=== PATIENT | male | born 1955 | race Caucasian/White ===

== ENCOUNTER 2025-01-03 10:13 | Emergency (ER) | payer MEDICARE, MEDICAID, SELFPAY ==
[2025-01-03 10:43] VITALS: BMI 32.9
--- NOTE | 2025-01-03 10:47 | PC.NURSE ---
patient is from [facility], he is comvative refusing to let the staff do his vitals, he refusing to put on a gown, he is confused per emt report, he fell at the rehab 2 days go
--- NOTE | 2025-01-03 10:50 | EDNOTE_ITS ---
Altered Mental Status RME/HPI General Chief Complaint: Altered Mental Status Stated Complaint: AMS Time Seen by Provider: 01/03/25 10:44 Arrival date/time: 01/03/25 10:13 RME / HPI RME / HPI narrative: 69 year old male presents to the ED [facility]OD[facility] from [facility] for evaluation of altered mental status today. Per medics, NM reported at baseline patient is GCS of 15, conversive, ambulatory, and independent in ADL's. However, staff noted today patient is bed bound, incontinent, combative, and not answering questions. NH staff additionally reported patient had an unwitnessed fall on 01/01/2025, no obvious injuries were reported. While in the ED patient is combative, punching, and calling me a mother fucker . No further history obtainable from the patient. Related Data Allergies Allergy/AdvReac Type Severity Reaction Status Date / Time No Known Allergies Allergy Verified 01/03/25 10:45 Review of Systems Review of Systems ROS Unobtainable: unobtainable due to mental status Past Medical History Social History SMOKING STATUS: Never smoker ED Exam Narrative Physical exam: GENERAL APPEARANCE: Well hydrated, well nourished, in no acute distress. Patient is resisting exam, would not allow to take a listen to his heart or lungs. Patient is kicking, punching, and calling me mother fucker . HEENT: Normocephalic, atramatic, EOMI. NECK: Supple CARDIOVASCULAR: Patient would not allow me to listen to his heart LUNGS/CHEST: Patient would not allow to listen to his lungs ABDOMEN: Soft, non distended EXTREMITIES: Moving all extremities, no obvious injuries or deformities SKIN: Warm and dry MUSCULOSKELETAL: No gross deformity, full ROM all extremities NEURO: Patient is awake. Patient is resisting exam and combative, unable to assess neuro exam. PSYCHIATRIC: Patient is combative, kicking, punching at staff Course Quality Measures none Orders Category Date Time Status EKG (ED ONLY) *Do not use* NOW Care 01/03/25 11:03 Completed Petit [Urinary Catheter] QS Care 01/03/25 15:[address] cervical spine wo con Stat Exams 01/03/25 11:[address] chest abdomen pelvis wo Stat Exams 01/03/25 11:[address] head/brain wo con Stat Exams 01/03/25 11:[address] lumbar spine wo con Stat Exams 01/03/25 11:[address] thoracic spine wo con Stat Exams 01/03/25 11:03 Completed EKG (ED Only) Stat Exams 01/03/25 11:03 Draft CBC Stat Lab 01/03/25 14:15 Completed CMP [Comprehensive Metabolic Panel] Stat Lab 01/03/25 15:35 Completed Troponin I Stat Lab 01/03/25 15:35 Completed Urinalysis Stat Lab 01/03/25 17:00 Completed Urine Culture Stat Lab 01/03/25 17:00 Received DiphenhydrAMINE INJ [Benadryl Inj] Med 01/03/25 11:03 Discontinued 50 mg IM X1 ONE Haloperidol Lactate [Haldol Inj] Med 01/03/25 11:03 Discontinued 5 mg IM X1 ONE LORazepam [Ativan Inj] Med 01/03/25 11:03 Discontinued 2 mg IM X1 ONE LORazepam [Ativan Inj] Med 01/03/25 12:50 Discontinued 2 mg IM X1 ONE Sodium Chloride 0.9% 1000 ml [Ns] 1,000 ml Med 01/03/25 11:03 Active IV 125 mls/hr fentaNYL INJ [Sublimaze Inj] Med 01/03/25 16:20 Discontinued 50 mcg IVP X1 ONE Vital Signs Vital signs: Vital Signs Temperature 98.3 F 01/03/25 11:43 Pulse Rate 85 01/03/25 11:43 Respiratory Rate 18 01/03/25 11:43 Blood Pressure 139/76 H 01/03/25 11:43 Pulse Oximetry (%) 97 01/03/25 11:43 Oxygen Delivery Method Room Air 01/03/25 11:43 Altered Mental Status MDM Narrative MDM Narrative:: I, Guerda Kimbrough, am scribing for and in the presence of Dr. De Guzman. CBC unremarkable. CMP unremarkable may be except for mild dehydration for which he received some IV fluid bolus. UA showing some sugar and some ketones. Once again consistent with dehydration. Troponin negative. CT head, CT neck, CT thoracic spine, CT lumbar spine and CT chest abdomen and pelvic showing nothing acute. I look at the CT abdomen and pelvic myself I saw bladder distended with urine. Petit was inserted by nursing staff and we got approximately 760 mL of urine so far. Patient will be discharged home with a Petit leg bag for urinary retention. Patient data External records reviewed:: [facility] previous records, EMS form and Prison records (I reviewed txfer ppw from [facility] ) Clinical information provided by:: EMS Social determinants that could affect healthcare access:: housing (NH resident ) Patient has the following chronic illnesses:: Diabetes, hypertension, hyperlipidemia How is presenting disease/condition affected by chronic disease/condition?: exacerbated by Evaluation data The following diagnostics were reviewed and interpreted by me:: lab results, radiology exam(s) and EKG tracing(s) Lab and/or radiology exams considered but not ordered:: None Interpretation Summary: Ordering Physician: Moustapha De Guzman MD Date of Service: 01/03/25 Procedure(s): CT cervical spine wo con Accession Number(s): [id number] cc: Myron Ramirez MD; Moustapha De Guzman MD~ Examination: CT cervical spine without contrast 2-D sagittal reconstructions 2-D coronal reconstructions 3-D reconstructions. Exam date and time:January 03, 2025 1329 hours INDICATIONS: Patient fell a few days ago with injury to the neck, neck pain CTDI:vol (mGy) 7.78 DLP: (mGycm) 173 Technique: Multiple 2 mm axial sections of the cervical spine have been obtained. The coronal and sagittal reconstructions have been obtained. 3-D reconstructions have been obtained. Low dose protocols were performed. One or more of the following dose reduction techniques were used; automated exposure control, adjustment of the mA and/or KV according to patient size, use of iterative reconstruction technique. Findings: Axial sections demonstrate intact base of the skull. C1 exhibit satisfactory relationship to the odontoid. No acute cervical vertebral body fracture seen. Alignment posterior spinous processes satisfactory. Impression: No acute cervical fracture. Dictated By: Myron Ramirez MD Signed By: <Electronically signed by Myron Ramirez MD in OV> 01/03/25 4473 Ordering Physician: Moustapha De Guzman MD Date of Service: 01/03/25 Procedure(s): CT chest abdomen pelvis wo Accession Number(s): [id number] cc: Myron Ramirez MD; Moustapha De Guzman MD~ Examination: CT chest, without intravenous contrast. CT abdomen, without intravenous contrast. CT pelvis, without intravenous contrast. 2-D sagittal and coronal reconstructions. 3-D reconstructions. Date and time of exam:January 03, 2025 at 1334 hours INDICATIONS: Patient fell a few days ago with injury to the chest and abdomen, chest pain abdomen pain CTDI vol (mgy) 14.2 DLP (MGycm)1127 Technique: Multiple CT images, 3.0 mm slice thickness, obtained chest, abdomen, pelvis, with the high-resolution 64 slice scanner.. Sagittal and coronal 2-D reconstructions are obtained. 3-D reconstructions Low dose protocols were performed. One or more of the following dose reduction techniques were used; automated exposure control, adjustment of the mA and/or KV according to patient size, use of iterative reconstruction technique. Findings: Thoracic aorta pulmonary arteries appear intact Heavy calcification left anterior descending coronary artery No hemopericardium Patient motion degrades scan image quality There is mild irregularity of the upper margin of the sternum sagittal image 140 No acute thoracic vertebral body compression areas chronic compression L3, L2 and T2 Mild vascular congestion No pneumothorax Rib detail is poor secondary to patient motion No visualized liver splenic or renal laceration Fat-containing right adrenal mass 4.7 cm Cholelithiasis Abdominal aorta intact No free blood in the abdomen Negative for pneumoperitoneum 6 mm fat-containing umbilical hernia Urinary bladder is distended, intact Fat-containing inguinal hernias Chronic compression L3, L2 Old deformities of the anterior pelvic rami IMPRESSION: Study is limited secondary to patient motion There is irregularity of the upper body of the sternum which may relate to patient motion, clinical correlation advised No hemopericardium, pneumothorax, pulmonary contusion or hemothorax No abdominal parenchymal laceration Abdominal aorta intact No free blood in the abdomen or pelvis Dictated By: Myron Ramirez MD Signed By: <Electronically signed by Myron Ramirez MD in OV> 01/03/25 1423 Ordering Physician: Muostapha De Guzman MD Date of Service: 01/03/25 Procedure(s): CT head/brain wo con Accession Number(s): [id number] cc: Myron Ramirez MD; Moustapha De Guzman MD~ Examination: CT brain head without contrast. 2-D sagittal coronal reconstructions Date and time of exam:January 03, 2025 1329 hours Comparison November 23, 2023 INDICATIONS: Altered mental status beginning several days ago CTDI: vol (mGy):55.7 DLP: (mGycm):1135 Technique: Multiple CT axial sections of the brain have been obtained, 5 mm slice thickness. Contrast has not been administered. 2-D sagittal, coronal reconstructions have been obtained Low dose protocols were performed. One or more of the following dose reduction techniques were used; automated exposure control, adjustment of the mA and/or KV according to patient size, use of iterative reconstruction technique. Findings: Mild to moderate stable ventricular enlargement ventricular enlargement. Intra-axial or extra-axial hemorrhage density is not seen. No mass effect or midline shift Basal cisterns are not remarkable. Fourth ventricle is midline. Cranial vault intact. Impression: Negative for acute hemorrhage, mass effect or midline shift Dictated By: Myron Ramirez MD Signed By: <Electronically signed by Myron Ramirez MD in OV> 01/03/25 1351 Ordering Physician: Moustapha De Guzman MD Date of Service: 01/03/25 Procedure(s): CT lumbar spine wo con Accession Number(s): [id number] cc: Myron Ramirez MD; Moustapha De Guzman MD~ Examination: CT lumbar spine, without contrast. 2-D sagittal reconstructions. 2-D coronal reconstructions. 3-D reconstructions. Date and time of exam:January 03, 2025 1334 hours INDICATIONS: Patient fell a few days ago with injury to the lower back, lower back pain CTDI: vol (mGy):28.4 DLP: (mGycm):914 Technique: Multiple 1.25 mm axial sections of the lumbar spine without intravenous contrast have been obtained. 2-D sagittal and coronal reconstructions have been obtained. 3-D reconstructions have been obtained. Low dose protocols were performed. One or more of the following dose reduction techniques were used; automated exposure control, adjustment of the mA and/or KV according to patient size, use of iterative reconstruction technique. Findings: Severe osteopenia Chronic appearing depression superior endplate L2, L3 There is a large cortical defect in the superior endplate L3, sagittal image 60, which does appear chronic but clinical correlation advised No spondylolisthesis No focal thoracic disc protrusions IMPRESSION: Chronic appearing compressions L2, L3 If low back pain persists, suggest MRI lumbar spine without contrast follow-up Dictated By: Myron Ramirez MD Signed By: <Electronically signed by Myron Ramirez MD in OV> 01/03/25 1429 \Ordering Physician: Moustapha De Guzman MD Date of Service: 01/03/25 Procedure(s): CT thoracic spine wo [facility] Accession Number(s): [id number] cc: Myron Ramirez MD; Moustapha De Guzman MD~ Examination: CT thoracic spine, without contrast. 2-D sagittal reconstructions. 2-D coronal reconstructions. 3-D reconstructions. Date and time of exam:January 03, 2025 at 1334 hours INDICATIONS: Patient fell a few days ago with injury to the mid back, mid back pain CTDI: vol (mGy):25.8 DLP: (mGycm):949 Technique: Multiple 1.25 mm axial sections of the thoracic spine without intravenous contrast have been obtained. 2-D sagittal and coronal reconstructions have been obtained. 3-D reconstructions have been obtained. Low dose protocols were performed. One or more of the following dose reduction techniques were used; automated exposure control, adjustment of the mA and/or KV according to patient size, use of iterative reconstruction technique. Findings: The entire study is degraded by continual patient motion Severe osteopenia Chronic appearing compressions T2 and T4 No acute thoracic fracture No focal thoracic disc protrusion IMPRESSION: No acute thoracic fracture Dictated By: Myron Ramirez MD Signed By: <Electronically signed by Myron Ramirez MD in OV> 01/03/25 1444 Medications / Prescriptions Medications or Prescriptions considered but not ordered:: None Medication administrations:: Medication Administration History Sodium Chloride (Ns) 1,000 mls @ 125 mls/hr IV .Q8H ONE Stop: 01/03/25 19:02 Last Admin: 01/03/25 14:56 Dose: 125 mls/hr Documented By: REYNA Discontinued Medications Diphenhydramine HCl (Diphenhydramine Inj 50 Mg/Ml Vial) 50 mg IM X1 ONE Stop: 01/03/25 11:04 Last Admin: 01/03/25 11:32 Dose: 50 mg Documented By: Fentanyl Citrate (Fentanyl Cit Inj 50 Mcg/Ml Amp 2ml) 50 mcg IVP X1 ONE Stop: 01/03/25 16:21 Last Admin: 01/03/25 16:25 Dose: 50 mcg Documented By: REYNA Haloperidol Lactate (Haloperidol Lact Inj 5 Mg/Ml Vial) 5 mg IM X1 ONE Stop: 01/03/25 11:04 Last Admin: 01/03/25 11:32 Dose: 5 mg Documented By: Lorazepam (Lorazepam 2 Mg/Ml Vial) 2 mg IM X1 ONE Stop: 01/03/25 11:04 Last Admin: 01/03/25 11:32 Dose: 2 mg Documented By: Lorazepam (Lorazepam 2 Mg/Ml Vial) 2 mg IM X1 ONE Stop: 01/03/25 12:51 Last Admin: 01/03/25 12:55 Dose: 2 mg Documented By: REYNA See above Consultations Consultation(s) initiated? (list below): No Diagnosis Most likely diagnosis given after review of the tests above:: Dementia Cholelithiasis Acute urinary retention Admission Indicated Admission indicated?: not indicated Admission Request Was there a request for admission?: No Disposition Plan Disposition Plan: Discharge Discharge Attestation Discharge Attestation: The patient and all family members were given an opportunity to ask questions and understood the discharge instructions. Discharge instructions specifically effects, indications for sooner follow up or return to the emergency department, and the expected course of current diagnosis. Patient condition: Stable Discharge Plan Plan Patient Disposition: Xfer Skilled Nsg Fac (SNF) Disposition Comment: Stable for DC Prescriptions/Referrals Referrals: No Primary/Family,Physician [Primary Care Provider] - In 1 week Problem List Clinical Impression: Dementia, Cholelithiasis, Acute urinary retention Patient/Caregiver Discharge Instructions Education Materials: What Are Gallstones, Understanding Dementia, ED Urinary Retention, Male Additional Instructions: Bladder was distended. Petit was inserted and we got approximately 760 mL of urine. Continue the Petit and leg bag. Empty leg bag when full. Petit should be removed in 3 days. Follow-up with his medical doctor in 3 days. Return to nearest emergency department if any problem. I am enclosing a copy of the CT report that we done here in the emergency department. Please make it available to the doctor at the [facility]. Print Language: Mongolian Stand Alone Forms: [facility] Award Info., Patient Portal Info Letter
--- NOTE | 2025-01-03 11:03 | XR_ITS ---
Examination: CT cervical spine without contrast 2-D sagittal reconstructions 2-D coronal reconstructions 3-D reconstructions. Exam date and time:January 03, 2025 1329 hours INDICATIONS: Patient fell a few days ago with injury to the neck, neck pain CTDI:vol (mGy) 7.78 DLP: (mGycm) 173 Technique: Multiple 2 mm axial sections of the cervical spine have been obtained. The coronal and sagittal reconstructions have been obtained. 3-D reconstructions have been obtained. Low dose protocols were performed. One or more of the following dose reduction techniques were used; automated exposure control, adjustment of the mA and/or KV according to patient size, use of iterative reconstruction technique. Findings: Axial sections demonstrate intact base of the skull. C1 exhibit satisfactory relationship to the odontoid. No acute cervical vertebral body fracture seen. Alignment posterior spinous processes satisfactory. Impression: No acute cervical fracture.
--- NOTE | 2025-01-03 11:03 | EKG_ITS ---
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
--- NOTE | 2025-01-03 11:03 | XR_ITS ---
Examination: CT chest, without intravenous contrast. CT abdomen, without intravenous contrast. CT pelvis, without intravenous contrast. 2-D sagittal and coronal reconstructions. 3-D reconstructions. Date and time of exam:January 03, 2025 at 1334 hours INDICATIONS: Patient fell a few days ago with injury to the chest and abdomen, chest pain abdomen pain CTDI vol (mgy) 14.2 DLP (MGycm)1127 Technique: Multiple CT images, 3.0 mm slice thickness, obtained chest, abdomen, pelvis, with the high-resolution 64 slice scanner.. Sagittal and coronal 2-D reconstructions are obtained. 3-D reconstructions Low dose protocols were performed. One or more of the following dose reduction techniques were used; automated exposure control, adjustment of the mA and/or KV according to patient size, use of iterative reconstruction technique. Findings: Thoracic aorta pulmonary arteries appear intact Heavy calcification left anterior descending coronary artery No hemopericardium Patient motion degrades scan image quality There is mild irregularity of the upper margin of the sternum sagittal image 140 No acute thoracic vertebral body compression areas chronic compression L3, L2 and T2 Mild vascular congestion No pneumothorax Rib detail is poor secondary to patient motion No visualized liver splenic or renal laceration Fat-containing right adrenal mass 4.7 cm Cholelithiasis Abdominal aorta intact No free blood in the abdomen Negative for pneumoperitoneum 6 mm fat-containing umbilical hernia Urinary bladder is distended, intact Fat-containing inguinal hernias Chronic compression L3, L2 Old deformities of the anterior pelvic rami IMPRESSION: Study is limited secondary to patient motion There is irregularity of the upper body of the sternum which may relate to patient motion, clinical correlation advised No hemopericardium, pneumothorax, pulmonary contusion or hemothorax No abdominal parenchymal laceration Abdominal aorta intact No free blood in the abdomen or pelvis
--- NOTE | 2025-01-03 11:03 | XR_ITS ---
Examination: CT thoracic spine, without contrast. 2-D sagittal reconstructions. 2-D coronal reconstructions. 3-D reconstructions. Date and time of exam:January 03, 2025 at 1334 hours INDICATIONS: Patient fell a few days ago with injury to the mid back, mid back pain CTDI: vol (mGy):25.8 DLP: (mGycm):949 Technique: Multiple 1.25 mm axial sections of the thoracic spine without intravenous contrast have been obtained. 2-D sagittal and coronal reconstructions have been obtained. 3-D reconstructions have been obtained. Low dose protocols were performed. One or more of the following dose reduction techniques were used; automated exposure control, adjustment of the mA and/or KV according to patient size, use of iterative reconstruction technique. Findings: The entire study is degraded by continual patient motion Severe osteopenia Chronic appearing compressions T2 and T4 No acute thoracic fracture No focal thoracic disc protrusion IMPRESSION: No acute thoracic fracture
--- NOTE | 2025-01-03 11:03 | XR_ITS ---
Examination: CT lumbar spine, without contrast. 2-D sagittal reconstructions. 2-D coronal reconstructions. 3-D reconstructions. Date and time of exam:January 03, 2025 1334 hours INDICATIONS: Patient fell a few days ago with injury to the lower back, lower back pain CTDI: vol (mGy):28.4 DLP: (mGycm):914 Technique: Multiple 1.25 mm axial sections of the lumbar spine without intravenous contrast have been obtained. 2-D sagittal and coronal reconstructions have been obtained. 3-D reconstructions have been obtained. Low dose protocols were performed. One or more of the following dose reduction techniques were used; automated exposure control, adjustment of the mA and/or KV according to patient size, use of iterative reconstruction technique. Findings: Severe osteopenia Chronic appearing depression superior endplate L2, L3 There is a large cortical defect in the superior endplate L3, sagittal image 60, which does appear chronic but clinical correlation advised No spondylolisthesis No focal thoracic disc protrusions IMPRESSION: Chronic appearing compressions L2, L3 If low back pain persists, suggest MRI lumbar spine without contrast follow-up
--- NOTE | 2025-01-03 11:03 | XR_ITS ---
Examination: CT brain head without contrast. 2-D sagittal coronal reconstructions Date and time of exam:January 03, 2025 1329 hours Comparison November 23, 2023 INDICATIONS: Altered mental status beginning several days ago CTDI: vol (mGy):55.7 DLP: (mGycm):1135 Technique: Multiple CT axial sections of the brain have been obtained, 5 mm slice thickness. Contrast has not been administered. 2-D sagittal, coronal reconstructions have been obtained Low dose protocols were performed. One or more of the following dose reduction techniques were used; automated exposure control, adjustment of the mA and/or KV according to patient size, use of iterative reconstruction technique. Findings: Mild to moderate stable ventricular enlargement ventricular enlargement. Intra-axial or extra-axial hemorrhage density is not seen. No mass effect or midline shift Basal cisterns are not remarkable. Fourth ventricle is midline. Cranial vault intact. Impression: Negative for acute hemorrhage, mass effect or midline shift
[2025-01-03] MEDS: LORazepam 2 MG/ML VIAL IM ×2 (11:32→12:55)
[2025-01-03] MEDS: DiphenhydrAMINE INJ 50 MG/ML VIAL IM (11:32)
[2025-01-03] MEDS: HALOPERIDOL LACT INJ 5 MG/ML VIAL IM (11:32)
[2025-01-03 11:43] VITALS: BP 139/76; PULSE 85; RESP 18; TEMP 36.8; O2SAT 97
--- NOTE | 2025-01-03 12:50 | PC.NURSE ---
PATIENT CONTINUES TO BE COMBATIVE AND REMOVED BRIEF. 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
[2025-01-03] MEDS: SODIUM CHLORIDE 0.9% 1000 ML 1,000 ML 125 ML IV (14:56)
[2025-01-03 15:06] VITALS: BP 110/74; PULSE 98; RESP 17; TEMP 36.6; O2SAT 95
[2025-01-03 15:06] LABS: Basophils % (Auto) 0 % (0-2.5); Eosinophils # (Auto) 0.2 Thou/mm3 (0.0-0.5); Eosinophils % (Auto) 3 % (0-10); Hematocrit 40.4 % (41.0-53.0); Hemoglobin 13.8 g/dL (13.5-16.0); Immature Granulocytes % (Auto) 0 % (0-0); Immature Granulocytes Auto 0.02 Thou/mm3 (0.00-0.00); Lymphocytes # (Auto) 2.4 Thou/mm3 (1.0-4.8); Lymphocytes % (Auto) 28 % (10-50); Mean Corpuscular HGB Conc 34.2 g/dl (31.0-37.0); Mean Corpuscular Volume 91 fL (80-100); Monocytes # (Auto) 0.6 Thou/mm3 (0.0-0.8); Monocytes % (Auto) 7 % (0-12); Neutrophils # (Auto) 5.3 Thou/mm3 (1.8-7.7); Neutrophils % (Auto) 62 % (37-80); Nucleated Red Blood Cell % 0 /100 WBC (0); Platelet Count 228 Thou/mm3 (140-440); RDW Standard Deviation 41.1 fL (35.1-43.9); Red Blood Count 4.45 Miln/mm3 (4.50-5.90); White Blood Count 8.5 Thou/mm3 (3.8-10.6)
[2025-01-03 16:05] LABS: Alanine Aminotransferase 13 U/L (10-49); Albumin, Serum 3.7 gm/dL (3.4-4.8); Albumin/Globulin Ratio 1.3 (1.2-2.2); Alkaline Phosphatase 52 U/L (46-116); Anion Gap 7 (7-16); Aspartate Amino Transferase 24 U/L (0-34); BUN/Creatinine Ratio 30 Ratio (12-20); Bilirubin,Total 0.6 mg/dL (0.3-1.2); Blood Urea Nitrogen 24 mg/dL (9-23); Calcium 8.6 mg/dL (8.3-10.6); Calcium (Corrected) 8.8 mg/dL (8.5-10.1); Carbon Dioxide 27.8 mMol/L (20.0-31.0); Chloride 106 mMol/L (98-107); Creatinine (Component) 0.8 mg/dL (0.6-1.3); Estimated Creatinine Clearance 82.9 mL/min (>60); Globulin 2.9 gm/dL (2.3-3.5); Glucose 99 mg/dL (74-106); Osmolality,Calculated 285 (275-295); Potassium 3.9 mMol/L (3.4-5.1); Sodium 141 mMol/L (136-145); Total Protein 6.6 gm/dL (5.7-8.2); Troponin I < 0.002 ng/mL (0.0-0.045); eGFR > 60 See Note
[2025-01-03] MEDS: fentaNYL CIT INJ 50 mCg/ML AMP 2ML IVP (16:25)
[2025-01-03 17:13] VITALS: BP 93/62; PULSE 82; RESP 15; O2SAT 95
[2025-01-03 17:19] LABS: Collection Type, Urine Catheter; Squamous Epithelial Cell,Urine 0 /hpf (0-5)
[2025-01-03 17:27] LABS: Bilirubin,Urine Negative (Negative); Blood,Urine Negative (Negative); Clarity,Urine Clear (Clear/Hazy); Color,Urine Yellow (Lt Yel-Yel); Glucose, Urine 4+ (Negative); Hyaline Casts,Urine < 1 /hpf (0-1); Ketones,Urine 1+ (Negative); Leukocyte Esterase,Urine Negative (Negative); Nitrite,Urine Negative (Negative); Protein,Urine Trace (Neg - Trace); RBC,Urine 13 /hpf (0-3); Specific Gravity,Urine 1.028 (1.001-1.035); Urobilinogen,Urine Negative mg/dL (0.0-1.0); WBC,Urine 2 /hpf (0-5)
--- NOTE | 2025-01-03 18:24 | PD.EDADDENDU ---
Emergency Room Addendum Addendum Narrative: Twelve-lead EKG that was done at 12:36 PM and interpreted by me: Normal sinus rhythm. Heart rate is 97. Left axis deviation. No ST elevation. No ST depression. No PVC. No STEMI. Regular rate and rhythm.
[2025-01-03 19:29] VITALS: BP 108/71; PULSE 81; RESP 18; O2SAT 97
[2025-01-03 20:05] VITALS: BP 140/88; PULSE 88; RESP 18; TEMP 36.7; O2SAT 97
== END 2025-01-03 20:34 | disposition skilled nursing facility (03) ==
PROVIDERS: Emergency Provider Emergency Medicine
DX: F03.90 Unspecified dementia, unspecified severity, without behavioral disturbance, psychotic disturbance, mood disturbance, and anxiety (principal); K80.20 Calculus of gallbladder without cholecystitis without obstruction; N32.89 Other specified disorders of bladder; R94.31 Abnormal electrocardiogram [ECG] [EKG]; S19.9XXA Unspecified injury of neck, initial encounter; S29.9XXA Unspecified injury of thorax, initial encounter; S39.91XA Unspecified injury of abdomen, initial encounter; S39.92XA Unspecified injury of lower back, initial encounter; I10 Essential (primary) hypertension; W19.XXXA Unspecified fall, initial encounter; Z74.01 Bed confinement status
CPT/HCPCS: 51702; 36415; 70450; 71250; 72125; 72128; 72131; 74176; 80053; 81001; 84484; 85025; 87086; 93005; 96372; 99284; J1200; J1630; J2060; J3010; J7030

== ENCOUNTER 2025-02-06 08:39 | Emergency (ER) | payer MEDICARE, MEDICAID, SELFPAY ==
[2025-02-06 08:42] VITALS: PULSE 96; RESP 18; O2SAT 98; BMI 29.0
--- NOTE | 2025-02-06 08:57 | EKG_ITS ---
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
[2025-02-06 08:59] VITALS: BP 96/65; PULSE 99; RESP 16; TEMP 37; O2SAT 97
--- NOTE | 2025-02-06 09:56 | PC.NURSE ---
PT WAS GIVEN FOOD AND DRINK; PT WAS ABLE TO FEED HIM SELF, NOT C/O OF ANY DISCOMFORT.
--- NOTE | 2025-02-06 10:04 | PD.EDSEIZ ---
ED Seizures RME/HPI General Chief Complaint: Seizure Stated Complaint: SEIZURE Time Seen by Provider: 02/06/25 09:41 Arrival date/time: 02/06/25 08:39 RME / HPI RME / HPI Narrative: DR. GARZA MAIN ED EVALUATION: 69 year old male with past medical history significant for diabetes, hypertension, and hyperlipidemia presents to the Emergency Department [facility] with complaint of a seizure at the SNF, witnessed by his roommate. No fall or injury, patient was in bed when he had the seizure. Patient unsure why he is here but denies any symptoms. Patient is comfort measures only. Related Data Allergies Allergy/AdvReac Type Severity Reaction Status Date / Time No Known Allergies Allergy Verified 01/03/25 10:45 Review of Systems Review of Systems Systems Reviewed: All systems reviewed, normal except as documented Past Medical History Past Medical History CARDIAC: Positive Hypercholesterolemia and Hypertension; Negative Congestive Heart Failure RESPIRATORY: Negative Chronic Obstructive Pulmonary Disease (COPD) GASTROINTESTINAL: Positive Gastroesophageal Reflux Disease GENITOURINARY: Negative Renal Disease MUSCULOSKELETAL: Positive Degenerative Disk Disease ENDOCRINE: Positive Diabetes Mellitus Type 2; Negative Diabetes Mellitus Type 1 PSYCHO/SOCIAL: Positive Bipolar Disorder Social History SMOKING STATUS: Former smoker SUBSTANCE USE: does not use ALCOHOL: Never ED Exam Narrative Physical exam: GENERAL APPEARANCE: AxOx4, generally well-appearing, no acute distress. HEENT: NC, AT. MMM. EOMI, clear conjunctiva, oropharynx clear. NECK: Supple without lymphadenopathy. No stiffness or restricted ROM. HEART: Borderline tachycardic with regular rhythm, normal S1/S1, no m/r/g LUNGS: CTAB, moving air well. No crackles or wheezes are heard. ABDOMEN: Soft, nontender, nondistended with good bowel sounds heard. BACK: No midline C/T/L spine pain or deformity, No CVAT, no obvious deformity. EXTREMITIES: Without cyanosis, clubbing or edema. MUSCULOSKELETAL: FROM of all major joints, no chest tenderness NEUROLOGICAL: Grossly nonfocal. Alert and oriented, moving all 4 extremities. CN not formally tested but appear grossly intact. Observed to ambulate with normal gait. Skin: Warm and dry without any rash. Course Quality Measures none Orders Category Date Time Status EKG (ED ONLY) *Do not use* NOW Care 02/06/25 08:57 Completed EKG (ED Only) Stat Exams 02/06/25 08:57 Draft Vital Signs Vital signs: Vital Signs Temperature 98.6 F 02/06/25 08:59 Pulse Rate 99 02/06/25 08:59 Respiratory Rate 16 02/06/25 08:59 Blood Pressure 96/65 02/06/25 08:59 Pulse Oximetry (%) 97 02/06/25 08:59 Oxygen Delivery Method Room Air 02/06/25 08:59 Procedures -ED EKG Interpretation #1: Date of EK02/06/25 Time of EK:59 Rate: 106 Interpretation: Interpreted by me Additional EKG comment: sinus tachycardia, rate 106, normal intervals, normal axis, no STEMI Seizure MDM Narrative MDM Narrative:: I, Annalise Killian, am scribing for and in the presence of Dr. Garza. Patient data External records reviewed:: [facility] previous records (Reviewed last ED visit dated 01/03/25. discharged with the following: Acute urinary) and EMS form Clinical information provided by:: patient and EMS Social determinants that could affect healthcare access:: none Patient has the following chronic illnesses:: Diabetes, hypertension, and hyperlipidemia. How is presenting disease/condition affected by chronic disease/condition?: uneffected by Evaluation data The following diagnostics were reviewed and interpreted by me:: EKG tracing(s) Lab and/or radiology exams considered but not ordered:: none Interpretation Summary: See above under MDM narrative. Medications / Prescriptions Medications or Prescriptions considered but not ordered:: none Medication administrations:: see above if any Consultations Consultation(s) initiated? (list below): No Diagnosis Seizure Differential Diagnosis: generalized seizure, new onset seizure and epileptic seizure Most likely diagnosis given after review of the tests above:: Observed seizure-like activity Admission Indicated Admission indicated?: not indicated Admission Request Was there a request for admission?: No Disposition Plan Disposition Plan: Discharge Discharge Attestation Discharge Attestation: The patient and all family members were given an opportunity to ask questions and understood the discharge instructions. Discharge instructions specifically effects, indications for sooner follow up or return to the emergency department, and the expected course of current diagnosis. Patient condition: Stable Discharge Plan Plan Patient Disposition: HOME (Self Care) Problem List Clinical Impression: Observed seizure-like activity Patient/Caregiver Discharge Instructions Education Materials: ED Seizure New Onset Unknown ... Additional Instructions: Follow-up with the facility provider in 2 days for recheck. You can return to the emergency department sooner symptoms worsen or if notes any new, concerning issues. Print Language: Tanzanian Stand Alone Forms: [facility] Award Info., Patient Portal Info Letter
--- NOTE | 2025-02-06 10:15 | PC.CC ---
Sol TANG was consulted by CALVIN Gerard regarding transportation arrangement for the patient back to [facility]. ASW contacted [facility] [phone].
[2025-02-06 11:18] VITALS: BP 122/76; PULSE 99; RESP 17; O2SAT 100
== END 2025-02-06 12:47 | disposition home or self-care (01) ==
PROVIDERS: Emergency Provider Emergency Medicine
DX: R56.9 Unspecified convulsions (principal); R00.0 Tachycardia, unspecified; I10 Essential (primary) hypertension; E78.00 Pure hypercholesterolemia, unspecified; Z87.891 Personal history of nicotine dependence
CPT/HCPCS: 93005; 99283

== ENCOUNTER 2025-02-10 19:11 | Inpatient (IN) | payer MEDICARE, MEDICAID, SELFPAY ==
[2025-02-10] VITALS (8 sets, daily range): BP systolic 105–116; BP diastolic 63–84; PULSE 92–119; RESP 12–95; TEMP 36.8–37.5; O2SAT 90–97; BMI 26.6
--- NOTE | 2025-02-10 19:53 | PC.NURSE ---
Informed Dr. Ann pt meets sepsis criteria and that sepsis alert was called.
--- NOTE | 2025-02-10 19:57 | XR_ITS ---
Examination: AP chest single view Technique one AP portable semiupright chest single view Standing time: February 10, 2025 at 1917 hours INDICATIONS: Sepsis COMPARISON: November 23, 2023 FINDINGS: Diffuse mild bilateral pneumonia Normal heart size Mild vascular congestion Old deformity right clavicle IMPRESSION: Mild diffuse bilateral pneumonia
--- NOTE | 2025-02-10 19:57 | EKG_ITS ---
[facility] Test Date: 2025-02-10 Pat Name: FRANCISCO J MOHR Department: Room: - Gender: Male Configuration Manager: : 1955 Requested By: Terrence Morton Order Number: [id number] Reading MD: Terrence Morton Measurements Intervals [place] Rate: 113 P: 48 MI: 132 QRS: -39 QRSD: 102 T: 61 QT: 306 QTc: 421 Interpretive Statements SINUS TACHYCARDIA LEFT AXIS DEVIATION [QRS AXIS < -30] PATTERN CONSISTENT WITH PULMONARY DISEASE Compared to ECG 02/06/2025 08:59:48 No significant changes /store/S0/[id number]/[id number].pdf
--- NOTE | 2025-02-10 20:01 | PD.EDADULT ---
ED General RME/HPI General Chief complaint: General Adult/Misc Complain Stated complaint: WEAKNESS Time Seen by Provider: 02/10/25 19:55 Arrival date/time: 02/10/25 19:11 69 year old male with past medical history of Acute respiratory failure, weakness, mentally delayed cardiolyopathy, DM 2, GERD, HTN, HDL, Fall risk present to emergency room via EMS from [facility] with c/o of tachycardia per EMS. Pt is currently baseline. SEVERITY: Symptoms are described as being severe with limitations on activities of daily living CONTEXT: The patient is unable to identify any inciting events. DURATION/TIMING: The symptoms started approximately 1 day ASSOCIATED SYMPTOMS: The patient is unable to identify any other associated symptoms. MODIFYING FACTORS: The patient is unable to identify any alleviating or aggravating symptoms. PERTINENT ROS: patient is nonverbal DNR: Comfort care only REVIEW OF SYSTEMS: See History of Present Illness - with the exception of those mentioned in the history of present illness, all other systems reviewed and reported as negative GENERAL: In general the patient is awake, interactive, in an emergency department gurney. Non verbal HEAD/EYES/EARS/NOSE/THROAT: normo-cephalic, atraumatic, mucus membranes are moist, anicteric, palpebral conjunctiva is pink, trachea is midline. CARDIOVASCULAR: regular rate and regular rhythm, no murmurs, heart sounds are not distant, strong pulses in all four extremities that are equal and symmetric bilateral upper and lower extremities, normal capillary refill. CHEST/PULMONARY: normal chest rise and fall, scattered wheezes, + cough noted. without evidence of respiratory distress. NECK: No midline/Paraspinal tenderness, no step off ROM/Strenght intact No Kernig and bruzinski sign. No trauma ABDOMEN: soft, not tender, no masses appreciated BACK: normal range of motion without pain. NEUROLOGICAL: cranio-facial features are symmetric, moves all four extremities equally without obvious limitations or weakness. EXTREMITY: no tenderness to palpation over the long bones or large joints of the bilateral upper and lower extremities, no joint swelling, no joint erythema, no signs of trauma, no unilateral leg swelling and no peripheral edema. SKIN: warm, dry, well-perfused, no jaundice, no rash, no telangiectasias or petechia. PSYCH: calm, cooperative, no evidence of psychosis or agitation Related Data Allergies Allergy/AdvReac Type Severity Reaction Status Date / Time No Known Allergies Allergy Verified 02/10/25 19:29 Course Quality Measures Possible source: pulmonary Blood cultures ordered: yes Antibiotic ordered: Yes Pertinent labs: 02/10/25 20:07 Lactic Acid 3.1 H mMol/L (0.4-2.0) Procalcitonin 0.15 ng/ml (0.0-0.49) sepsis Orders Category Date Time Status Admit to Inpatient Status Routine Admission 02/10/25 21:52 Active Patient Condition Routine Admission 02/10/25 21:52 Ordered Activity as Tolerated Routine Care 02/10/25 21:53 Ordered Bedside Blood Glucose NOW Care 02/10/25 19:57 Active Instructor Of Education Q4H START 00 Care 02/10/25 19:57 Active Insert IV NOW Care 02/10/25 19:57 Active Notify provider NEEDED Care 02/10/25 21:52 Active Strict Intake and Output Routine Care 02/10/25 19:57 Ordered Diet Dysphagia 1- Pureed Diet 02/11/25 Breakfast Active XR chest 1V SEPSIS PROTOCOL Stat Exams 02/10/25 19:57 Completed Basic Metabolic Panel AM DRAW Lab 02/11/25 05:00 Ordered Basic Metabolic Panel AM DRAW Lab 02/12/25 05:00 Ordered Basic Metabolic Panel AM DRAW Lab 02/13/25 05:00 Ordered Blood Culture (Lab) Stat Lab 02/10/25 20:00 Received CBC AM DRAW Lab 02/11/25 05:00 Ordered CBC AM DRAW Lab 02/12/25 05:00 Ordered CBC AM DRAW Lab 02/13/25 05:00 Ordered CBC Stat Lab 02/10/25 20:07 Completed Comprehensive Metabolic Panel Stat Lab 02/10/25 20:07 Completed Lactate (Lactic Acid) Stat Lab 02/10/25 20:07 Results Lactic Acid [Lactate (Lactic Acid)] Stat Lab 02/10/25 21:50 Ordered Partial Thromboplastin Time Stat Lab 02/10/25 20:07 Completed Procalcitonin Stat Lab 02/10/25 20:07 Completed Prothrombin Time with INR Stat Lab 02/10/25 20:07 Completed Troponin I Stat Lab 02/10/25 20:07 Completed Urinalysis Stat Lab 02/10/25 21:23 Completed Urine Culture Stat Lab 02/10/25 21:23 Received Acetaminophen Tab [Tylenol Tab] Med 02/10/25 21:51 Ordered 650 mg PO Q6H PRN Enoxaparin [Lovenox] Med 02/11/25 09:00 Ordered 40 mg SC QDAY Sodium Chloride 0.9% 1000 ml [Ns] 1,000 ml Med 02/10/25 22:00 Ordered IV 60 mls/hr Sodium Chloride 0.9% 1000 ml [Ns] 1,000 ml Med 02/10/25 19:59 Discontinued IV 999 mls/hr Sodium Chloride 0.9% 1000 ml [Ns] 1,000 ml Med 02/10/25 21:33 Discontinued IV 999 mls/hr cefTRIAXone/D5w 1gm IV premix [Rocephin/D5w 1gm IV Med 02/10/25 19:59 Discontinued premix] 1 gm in 50 ml IV X1 Code Status Routine Oth 02/10/25 21:51 Ordered EKG (RT) Stat RT 02/10/25 19:57 Draft Oxygen Delivery DAILY RT 02/10/25 21:53 Active Oxygen Delivery NOW RT 02/10/25 19:57 Active Reevaluation(s) Reevaluation #1: 2008 Nurse spoke with family okay with IV antibiotics and IV fluids Reevaluation #2: 2129, nurse will call family if they want patient to be admit or go back to facility. xray: + pna 3.1 lactic, repeat pending wbc 11, cmp wnl , proca. wnl 2 bolus of IV fluids given so far, 1 gram of rocephin for sepsis protocol 2140 per nurse family is okay for patient to be admit and tx for pna. Reevaluation #3: DISPOSITION: Emergency Department nursing documentation was reviewed including triage complaint, associated symptoms, administration of medications, response to therapy and vital signs. Given the history, physical exam, and review of laboratory and imaging studies the patient is determined to be unsafe for discharge and is being moved into the hospital for further diagnostic tests, treatments, stabilization, and monitored response to therapy. I communicated the history, physical exam, pertinent laboratory and imaging studies to the inpatient physician. The inpatient physician has access to electronic copies of all emergency department laboratory testing and imaging studies as well as medications ordered and administered. Vital Signs Vital signs: Vital Signs Temperature 99.5 F 02/10/25 19:30 Pulse Rate 119 H 02/10/25 19:30 Respiratory Rate 17 02/10/25 19:30 Blood Pressure 116/76 02/10/25 19:30 Pulse Oximetry (%) 90 L 02/10/25 19:30 Oxygen Delivery Method Room Air 02/10/25 19:30 Procedures -ED EKG Interpretation #1: Date of EK02/10/25 Rate: 113 Interpretation: Reviewed by me EKG Impression: No acute ST-T changes, No ischemic changes and Sinus tachycardia MDM Patient data External records reviewed:: [facility] previous records and EMS form Clinical information provided by:: patient, EMS and family Social determinants that could affect healthcare access:: other (specify) (lives at [facility] ) Patient has the following chronic illnesses:: as stated in chart How is presenting disease/condition affected by chronic disease/condition?: exacerbated by Evaluation data The following diagnostics were reviewed and interpreted by me:: lab results, radiology exam(s) and EKG tracing(s) Lab and/or radiology exams considered but not ordered:: n/a Interpretation Summary: cxr: Diffuse mild bilateral pneumonia Normal heart size Mild vascular congestion Old deformity right clavicle IMPRESSION: Mild diffuse bilateral pneumonia wbc 11k cmp wnl lactic 3.1 ua no infection Medications Medications considered but not ordered:: n/a Medication administrations:: Medication Administration History Acetaminophen (Acetaminophen 325 Mg Tablet) 650 mg PO Q6H PRN PRN Reason: Fever >101.5 Stop: 03/12/25 21:50 Atorvastatin Calcium (Atorvastatin Calcium 20 Mg Tablet) 40 mg PO HS BRI Stop: 03/13/25 20:59 Dextrose (Dextrose 50%-Water Inj 50 Ml Syringe) 25 ml IV Q15MIN PRN PRN Reason: BG 50-70 responsive npo pt Stop: 03/12/25 21:53 Dextrose (Dextrose 50%-Water Inj 50 Ml Syringe) 50 ml IV Q15MIN PRN PRN Reason: BG <50 OR BG <70 & pt unresponsive Stop: 03/12/25 21:53 Divalproex Sodium (Divalproex Sod Dr 500 Mg Tablet.Dr) 250 mg PO TID BRI Stop: 03/12/25 21:59 Enoxaparin Sodium (Enoxaparin Sod Inj 40 Mg/0.4 Ml Syringe) 40 mg SC QDAY BRI Stop: 02/25/25 08:59 Glucagon (Glucagon Inj 1 Mg Vial) 1 mg IM Q15MIN PRN PRN Reason: BG <70, and no IV access Sodium Chloride (Ns) 1,000 mls @ 60 mls/hr IV .[id number] BRI Stop: 03/12/25 21:59 Ceftriaxone Sodium 1,000 mg/ (Sodium Chloride) 50 mls @ 100 mls/hr IV QDAY BRI Stop: 02/18/25 08:59 Azithromycin 500 mg/ Sodium (Chloride) 250 mls @ 250 mls/hr IV QDAY BRI Stop: 02/18/25 08:59 Insulin Glargine (Insulin Glargine (Lantus) 5 Unit/0.05 Ml (Per 5 Units)) 15 unit SC QDAY BRI Stop: 03/13/25 08:59 Insulin Human Lispro (Insulin Lispro (Admelog) 1 Unit/0.01 Ml Unit) 0 unit SC AC [facility]; Protocol Stop: 03/13/25 07:29 Discontinued Medications Sodium Chloride (Ns) 1,000 mls @ 999 mls/hr IV .Q1H1M ONE Stop: 02/10/25 20:59 Last Infusion: 02/10/25 21:39 Dose: Infused Documented By: Admin: 02/10/25 20:38 Dose: 999 mls/hr Documented By: BB Ceftriaxone Sodium/Dextrose (Rocephin/D5w 1gm Iv Premix) 1 gm in 50 mls @ 100 mls/hr IV X1 ONE Stop: 02/10/25 20:28 Last Infusion: 02/10/25 21:08 Dose: Infused Documented By: Admin: 02/10/25 20:38 Dose: 100 mls/hr Documented By: BB Sodium Chloride (Ns) 1,000 mls @ 999 mls/hr IV .Q1H1M ONE Stop: 02/10/25 22:33 Last Admin: 02/10/25 21:52 Dose: 999 mls/hr Documented By: KG as state above Consultations Consultation(s) initiated? (list below): Yes Consultation #1 (Physician, Specialty, Details): [phone] hospitalist for consult for admission , will accept patient for admission Diagnosis Differential Diagnosis ED Complaint MDM: pna, sepsis, uti, dehydration, electroyle imbalance, anemia Most likely diagnosis given after review of the tests above:: bilateral pna , sepsis Admission Indicated Admission indicated?: indicated Explain why admission is indicated or not indicated:: sepsis pna Admission Request Was there a request for admission?: Yes Admission Attestation Admission request attestation: Discussed case with [stewart ] from Hospitalist service regarding admission. Discussed patients ED course, exam findings, labs, and radiology results. The Hospitalist [agrees,] to accept the patient for admission. Disposition Plan Disposition Plan: Admit Medical Decision Making Differential Diagnosis Differential Diagnosis: pna, sepsis, uti, dehydration, electroyle imbalance, anemia Lab Data 02/10/25 20:07 02/10/25 20:07 Labs: Lab Results 02/10/25 02/10/25 Range/Units 20:07 21:23 WBC 11.0 H (3.8-10.6) Thou/mm3 RBC 4.22 L (4.50-5.90) Miln/mm3 Hgb 13.1 L (13.5-16.0) g/dL Hct 39.1 L (41.0-53.0) % MCV 93 (80-100) fL MCH 31.0 (25.0-35.0) pg MCHC 33.5 (31.0-37.0) g/dl RDW Std Deviation 43.4 (35.1-43.9) fL Plt Count 215 (140-440) Thou/mm3 Neut % (Auto) 72 (37-80) % Lymph % (Auto) 18 (10-50) % [place] % (Auto) 8 (0-12) % Eos % (Auto) 1 (0-10) % Baso % (Auto) 1 (0-2.5) % Neut # (Auto) 8.0 H (1.8-7.7) Thou/mm3 Lymph # (Auto) 2.0 (1.0-4.8) Thou/mm3 [place] # (Auto) 0.8 (0.0-0.8) Thou/mm3 Eos # (Auto) 0.1 (0.0-0.5) Thou/mm3 Baso # (Auto) 0.1 (0.0-0.2) Thou/mm3 Immature Gran # (Auto) 0.04 H (0.00-0.00) Thou/mm3 Absolute Nucleated RBC 0.00 (0.00-0.00) Thou/mm3 Immature Gran % 0 (0-0) % Nucleated RBC % 0 (0) /100 WBC PT 10.8 (9.0-12.2) Seconds INR 1.0 (0.9-1.3) APTT 24.7 (22.0-36.0) Seconds Sodium 139 (136-145) mMol/L Potassium 4.2 (3.4-5.1) mMol/L Chloride 104 (98-107) mMol/L Carbon Dioxide 25.9 (20.0-31.0) mMol/L Anion Gap 9 (7-16) BUN 26 H (9-23) mg/dL Creatinine 0.9 (0.6-1.3) mg/dL Estim Creat Clear Calc 71.9 (>60) mL/min eGFR > 60 (60 - ) See Note BUN/Creatinine Ratio 29 H (12-20) Ratio Glucose 248 H (74-106) mg/dL Calculated Osmolality 290 (275-295) Lactic Acid 3.1 H (0.4-2.0) mMol/L Calcium 9.0 (8.3-10.6) mg/dL Corrected Calcium 9.4 (8.5-10.1) mg/dL Total Bilirubin 0.3 (0.3-1.2) mg/dL AST 16 (0-34) U/L ALT 10 (10-49) U/L Alkaline Phosphatase 66 (46-116) U/L Troponin I < 0.002 (0.0-0.045) ng/mL Total Protein 6.4 (5.7-8.2) gm/dL Albumin 3.5 (3.4-4.8) gm/dL Globulin 2.9 (2.3-3.5) gm/dL Albumin/Globulin Ratio 1.2 (1.2-2.2) Procalcitonin 0.15 (0.0-0.49) ng/ml Ur Collection Type Catheter Urine Color Lt-Yellow (Lt Yel-Yel) Urine Clarity Clear (Clear/Hazy) Urine pH 6.0 (5.0-7.0) Ur Specific [place] 1.023 (1.001-1.035) Urine Protein Negative (Neg - Trace) Urine Glucose (UA) 3+ A (Negative) Urine Ketones 1+ A (Negative) Urine Blood Negative (Negative) Urine Nitrite Negative (Negative) Urine Bilirubin Negative (Negative) Urine Urobilinogen (Auto) Negative (0.0-1.0) mg/dL Ur Leukocyte Esterase Negative (Negative) Urine RBC 3 (0-3) /hpf Urine WBC 1 (0-5) /hpf Ur Squamous Epith Cells < 1 (0-5) /hpf Urine Bacteria None (None) Discharge Plan Problem List Clinical Impression: Sepsis due to pneumonia
[2025-02-10 20:13] LABS: Lactate (Lactic Acid) 3.1 mMol/L (0.4-2.0)
[2025-02-10 20:27] LABS: Basophils # (Auto) 0.1 Thou/mm3 (0.0-0.2); Basophils % (Auto) 1 % (0-2.5); Eosinophils # (Auto) 0.1 Thou/mm3 (0.0-0.5); Eosinophils % (Auto) 1 % (0-10); Hematocrit 39.1 % (41.0-53.0); Hemoglobin 13.1 g/dL (13.5-16.0); Immature Granulocytes % (Auto) 0 % (0-0); Immature Granulocytes Auto 0.04 Thou/mm3 (0.00-0.00); Lymphocytes % (Auto) 18 % (10-50); Mean Corpuscular HGB Conc 33.5 g/dl (31.0-37.0); Mean Corpuscular Volume 93 fL (80-100); Monocytes # (Auto) 0.8 Thou/mm3 (0.0-0.8); Monocytes % (Auto) 8 % (0-12); Neutrophils % (Auto) 72 % (37-80); Nucleated Red Blood Cell % 0 /100 WBC (0); Platelet Count 215 Thou/mm3 (140-440); RDW Standard Deviation 43.4 fL (35.1-43.9); Red Blood Count 4.22 Miln/mm3 (4.50-5.90)
[2025-02-10 20:37] LABS: Partial Thromboplastin Time 24.7 Seconds (22.0-36.0); Prothrombin Time 10.8 Seconds (9.0-12.2)
[2025-02-10] MEDS: SODIUM CHLORIDE 0.9% 1000 ML 1,000 ML 999 ML IV ×2 (20:38→21:52)
[2025-02-10] MEDS: cefTRIAXone/D5w 1gm IV premix 1 GM/50 ML BAG IV (20:38)
[2025-02-10 21:09] LABS: Alanine Aminotransferase 10 U/L (10-49); Albumin, Serum 3.5 gm/dL (3.4-4.8); Anion Gap 9 (7-16); Aspartate Amino Transferase 16 U/L (0-34); BUN/Creatinine Ratio 29 Ratio (12-20); Bilirubin,Total 0.3 mg/dL (0.3-1.2); Blood Urea Nitrogen 26 mg/dL (9-23); Carbon Dioxide 25.9 mMol/L (20.0-31.0); Chloride 104 mMol/L (98-107); Creatinine (Component) 0.9 mg/dL (0.6-1.3); Estimated Creatinine Clearance 71.9 mL/min (>60); Glucose 248 mg/dL (74-106); Osmolality,Calculated 290 (275-295); Potassium 4.2 mMol/L (3.4-5.1); Sodium 139 mMol/L (136-145); Total Protein 6.4 gm/dL (5.7-8.2); Troponin I < 0.002 ng/mL (0.0-0.045); eGFR > 60 See Note
[2025-02-10 21:10] LABS: Albumin/Globulin Ratio 1.2 (1.2-2.2); Alkaline Phosphatase 66 U/L (46-116); Calcium (Corrected) 9.4 mg/dL (8.5-10.1); Globulin 2.9 gm/dL (2.3-3.5); Procalcitonin 0.15 ng/ml (0.0-0.49)
[2025-02-10 21:38] LABS: Collection Type, Urine Catheter
--- NOTE | 2025-02-10 21:46 | PC.NURSE ---
Called and spoke with healthcare POA Luciana - [facility] to admit patient and treat with IV antibiotics. Dr. Cardenas at the bedside.
[2025-02-10 22:03] LABS: Bilirubin,Urine Negative (Negative); Blood,Urine Negative (Negative); Clarity,Urine Clear (Clear/Hazy); Color,Urine Lt-Yellow (Lt Yel-Yel); Glucose, Urine 3+ (Negative); Ketones,Urine 1+ (Negative); Leukocyte Esterase,Urine Negative (Negative); Nitrite,Urine Negative (Negative); Protein,Urine Negative (Neg - Trace); RBC,Urine 3 /hpf (0-3); Specific Gravity,Urine 1.023 (1.001-1.035); Squamous Epithelial Cell,Urine < 1 /hpf (0-5); Urobilinogen,Urine Negative mg/dL (0.0-1.0); WBC,Urine 1 /hpf (0-5)
--- NOTE | 2025-02-10 22:08 | PC.NURSE ---
Admitting resident at the bedside.
--- NOTE | 2025-02-10 22:23 | ESHP_ITS ---
Documentation for date of: 02/10/25 HPI History of Present Illness Chief complaint: Tachycardia reported by half-way facility staff History of present illness: HPI: A 69-year-old male patient with past medical history of hypertension, hyperlipidemia, diabetes mellitus, and encephalopathy, muscular disorder, bipolar disorder, questionable seizure disorder, on valproate was brought to the ED from half-way facility after he was noticed to have tachycardia. Patient at baseline is confused and oriented x 1 only to self. Was not able to take history from the patient however in review of the patient's chart patient was noticed to have heart rate of 119, respiratory rate of 17, O2 sat of 90% on room air increased to 97 on 2 L of oxygen. WBC found to be elevated 11.0, hemoglobin 13.1 CMP was only significant for blood glucose of 248, lactic acid of 3.1, Pro-Geraldo was negative and serum creatinine is 0.9, chest x-ray showed bilateral pneumonia, EKG showed sinus tachycardia. Patient received 1 dose of ceftriaxone at the ED and also was given 1 L of fluids. Home medications:Atorvastatin, valproate, insulin, metformin, ipratropium/albuterol inhaler, PMH: As above PSX: Knee replacement surgery Social hx: Unknown history of drug abuse or smoking Allergies: No known allergies Review of Systems Review of Systems Systems Reviewed: All systems reviewed, normal except as documented Exam Vital Signs Temp Pulse Resp BP Pulse Ox O2 Del Method O2 Flow Rate 99.5 F 113 H 18 113/63 97 Nasal Cannula 2 02/10/25 19:30 02/10/25 21:00 02/10/25 21:00 02/10/25 21:00 02/10/25 21:00 02/10/25 21:00 02/10/25 21:00 Narrative Exam GEN: AOx1 at baseline, able to follow command. HEENT: NC/AC,oral mucosa moist, neck supple. CVS: RRR, S1-S2 present, no murmurs appreciated. RESP: Coarse crepitations B/L. GI: Soft,non distended, non tender, NBS. MSK: Able to move all 4 limbs, no lower extremity edema. SKIN: Warm and dry. HALL DIRECTOR: CN II-XII and Sensation grossly intact. Results: Labs 02/10/25 20:07 02/10/25 20:07 Labs: Short CBC 02/10/25 Range/Units 20:07 WBC 11.0 H (3.8-10.6) Thou/mm3 Hgb 13.1 L (13.5-16.0) g/dL Hct 39.1 L (41.0-53.0) % Plt Count 215 (140-440) Thou/mm3 BMP 02/10/25 20:07 Sodium 139 Potassium 4.2 Chloride 104 Carbon Dioxide 25.9 BUN 26 H Creatinine 0.9 Glucose 248 H Calcium 9.0 Cardiac Enzymes 02/10/25 Range/Units 20:07 Troponin I < 0.002 (0.0-0.045) ng/mL Liver Function 02/10/25 Range/Units 20:07 Total Bilirubin 0.3 (0.3-1.2) mg/dL AST 16 (0-34) U/L ALT 10 (10-49) U/L Alkaline Phosphatase 66 (46-116) U/L Albumin 3.5 (3.4-4.8) gm/dL Urine 02/10/25 Range/Units 21:23 Urine Color Lt-Yellow (Lt Yel-Yel) Urine Clarity Clear (Clear/Hazy) Urine pH 6.0 (5.0-7.0) Ur Specific [place] 1.023 (1.001-1.035) Urine Protein Negative (Neg - Trace) Urine Glucose (UA) 3+ A (Negative) Quality Measures Quality Measures sepsis Current suspected stage: sepsis Possible source: pulmonary Blood cultures ordered: completed in ED Antibiotic ordered: Yes Advance care planning discussed with:: patient Medications Home Medications and Allergies Allergies Allergy/AdvReac Type Severity Reaction Status Date / Time No Known Allergies Allergy Verified 02/10/25 19:29 Visit Medications Acetaminophen (Acetaminophen 325 Mg Tablet) 650 mg PO Q6H PRN PRN Reason: Fever >101.5 Stop: 03/12/25 21:50 Atorvastatin Calcium (Atorvastatin Calcium 20 Mg Tablet) 40 mg PO HS BRI Stop: 03/13/25 20:59 Dextrose (Dextrose 50%-Water Inj 50 Ml Syringe) 25 ml IV Q15MIN PRN PRN Reason: BG 50-70 responsive npo pt Stop: 03/12/25 21:53 Dextrose (Dextrose 50%-Water Inj 50 Ml Syringe) 50 ml IV Q15MIN PRN PRN Reason: BG <50 OR BG <70 & pt unresponsive Stop: 03/12/25 21:53 Divalproex Sodium (Divalproex Sod Dr 500 Mg Tablet.Dr) 250 mg PO TID [facility] Stop: 03/12/25 21:59 Enoxaparin Sodium (Enoxaparin Sod Inj 40 Mg/0.4 Ml Syringe) 40 mg SC QDAY [facility] Stop: 02/25/25 08:59 Glucagon (Glucagon Inj 1 Mg Vial) 1 mg IM Q15MIN PRN PRN Reason: BG <70, and no IV access Sodium Chloride (Ns) 1,000 mls @ 999 mls/hr IV .Q1H1M ONE Stop: 02/10/25 22:33 Last Admin: 02/10/25 21:52 Dose: 999 mls/hr Sodium Chloride (Ns) 1,000 mls @ 60 mls/hr IV .[id number] BRI Stop: 03/12/25 21:59 Ceftriaxone Sodium 1,000 mg/ (Sodium Chloride) 50 mls @ 100 mls/hr IV QDAY [facility] Stop: 02/18/25 08:59 Azithromycin 500 mg/ Sodium (Chloride) 250 mls @ 250 mls/hr IV QDAY [facility] Stop: 02/18/25 08:59 Insulin Glargine (Insulin Glargine (Lantus) 5 Unit/0.05 Ml (Per 5 Units)) 15 unit SC QDAY [facility] Stop: 03/13/25 08:59 Insulin Human Lispro (Insulin Lispro (Admelog) 1 Unit/0.01 Ml Unit) 0 unit SC AC [facility]; Protocol Stop: 03/13/25 07:29 Discontinued Medications Sodium Chloride (Ns) 1,000 mls @ 999 mls/hr IV .Q1H1M ONE Stop: 02/10/25 20:59 Last Infusion: 02/10/25 21:39 Dose: Infused Ceftriaxone Sodium/Dextrose (Rocephin/D5w 1gm Iv Premix) 1 gm in 50 mls @ 100 mls/hr IV X1 ONE Stop: 02/10/25 20:28 Last Infusion: 02/10/25 21:08 Dose: Infused Assessment & Plan Plan Summary: A 69-year-old male patient with past medical history of hypertension, hyperlipidemia, diabetes mellitus, and encephalopathy, muscular disorder, bipolar disorder, questionable seizure disorder, on valproate was brought to the ED from half-way facility after he was noticed to have tachycardia. Patient was admitted for Tx of sepsis 2/2 PNA #Sepsis 2/2 PNA #CAP heart rate of 119, respiratory rate of 17, O2 sat of 90% on room air increased to 97 on 2 L of oxygen. WBC found to be elevated 11.0, hemoglobin 13.1 CMP was only significant for blood glucose of 248, lactic acid of 3.1, Pro-Geraldo was negative and serum creatinine is 0.9, chest x-ray showed bilateral pneumonia, EKG showed sinus tachycardia. Patient and known case of any heart conditions however it was noticed that the patient is on Entresto for that reason we will order for the patient echocardiogram Plan ? Admit patient to med/tele ? Start the patient on azithromycin and ceftriaxone ? Follow-up on the blood cultures and urine cultures ? Follow-up on the MRSA screening test ? Follow-up on cocci screening test ? Follow-up on the Legionella screening test ? Consider adding DuoNebs if needed ? Echocardiogram ? Speech evaluation to rule out aspiration as the patient noticed to have muscular dystrophy unspecified in his SNF documents ? Aspiration precautions #History of hypertension At this time patient's blood pressure on the soft side at 105/70 Plan ? Consider resuming home meds after med reconciliation if clinically warranted #History of seizure disorders? #History of bipolar disorder As per chart review patient is on valproate Plan ? Consider resuming home med valproate after med reconciliation #History of diabetes mellitus on insulin Patient was noticed to be using insulin at the facility. Plan ? Start the patient on insulin sliding scale ? Put patient on hypoglycemia protocol ? Follow-up on the A1c level #History of hyperlipidemia Plan ? Consider resuming home medications after med reconciliation #History of muscular dystrophy unspecified Plan ? Consider PT evaluation if needed Hospital Maintenance: FEN: Cardiac diet after patient passes bedside swallow eval DVT ppx: Heparin GI ppx: Protonix IV lines: PIV [place]: None Code status: DNR/DNI Dispo: Med/tele Patient's plan and care discussed with my attending, Dr. Ronald Davis MD Internal Medicine PGY-2 Attending Provider Attestation/Addendum Pt was evaluated and plan formulated together with the housestaff team. I have reviewed the residents note above and agree with most of its content. Please refer to the residents note for additional details. Treat pneumonia.
--- NOTE | 2025-02-10 22:52 | PC.NURSE ---
Called telepharmacy to verify meds - no answer. Will continue trying to call.
[2025-02-10] MEDS: SODIUM CHLORIDE 0.9% 1000 ML 1,000 ML 60 ML IV (22:57)
[2025-02-10 23:10] LABS: Reflex Lactate? Y
[2025-02-10 23:24] LABS: Lactic Acid, 3 HR 1.9 mMol/L (0.4-2.0)
[2025-02-10] MEDS: AZITHROMYCIN INJ 500 MG in SODIUM CHLORIDE 0.9% 250 ML 250 ML 250 MG IV (23:35)
[2025-02-11] VITALS (10 sets, daily range): BP systolic 120–141; BP diastolic 69–86; PULSE 73–117; RESP 10–20; TEMP 36–36.6; O2SAT 95–100; BMI 29.4; BMI 29.2
--- NOTE | 2025-02-11 00:19 | PC.NURSE ---
REPORT CALLED AND GIVEN TO MARC REYES RN
[2025-02-11] MEDS: SODIUM CHLORIDE RT 10% 15 ML NEBU 5 ML INH (01:27)
[2025-02-11] MEDS: DIVALPROEX SOD EC 125 MG TABEC 250 MG PO ×4 (01:36→21:16)
[2025-02-11 05:57] LABS: Basophils # (Auto) 0.1 Thou/mm3 (0.0-0.2); Basophils % (Auto) 1 % (0-2.5); Eosinophils # (Auto) 0.2 Thou/mm3 (0.0-0.5); Eosinophils % (Auto) 2 % (0-10); Hematocrit 36.3 % (41.0-53.0); Immature Granulocytes % (Auto) 0 % (0-0); Immature Granulocytes Auto 0.03 Thou/mm3 (0.00-0.00); Lymphocytes # (Auto) 2.6 Thou/mm3 (1.0-4.8); Lymphocytes % (Auto) 32 % (10-50); Mean Corpuscular HGB Conc 33.1 g/dl (31.0-37.0); Mean Corpuscular Hemoglobin 31.3 pg (25.0-35.0); Mean Corpuscular Volume 95 fL (80-100); Monocytes # (Auto) 0.6 Thou/mm3 (0.0-0.8); Monocytes % (Auto) 7 % (0-12); Neutrophils # (Auto) 4.8 Thou/mm3 (1.8-7.7); Neutrophils % (Auto) 58 % (37-80); Nucleated Red Blood Cell % 0 /100 WBC (0); Platelet Count 198 Thou/mm3 (140-440); RDW Standard Deviation 44.2 fL (35.1-43.9); Red Blood Count 3.83 Miln/mm3 (4.50-5.90); White Blood Count 8.2 Thou/mm3 (3.8-10.6)
[2025-02-11 06:24] LABS: Anion Gap 6 (7-16); BUN/Creatinine Ratio 23 Ratio (12-20); Blood Urea Nitrogen 16 mg/dL (9-23); Carbon Dioxide 26.6 mMol/L (20.0-31.0); Chloride 107 mMol/L (98-107); Creatinine (Component) 0.7 mg/dL (0.6-1.3); Estimated Creatinine Clearance 103.3 mL/min (>60); Glucose 93 mg/dL (74-106); Osmolality,Calculated 280 (275-295); Potassium 3.6 mMol/L (3.4-5.1); Sodium 140 mMol/L (136-145); eGFR > 60 See Note
[2025-02-11] MEDS: ENOXAPARIN SOD INJ 40 MG/0.4 ML SYRINGE SC (08:30)
[2025-02-11 13:04] LABS: Cocci Serology, IgM Positive (Negative)
[2025-02-11 13:05] LABS: Cocid Sro, CF/ID (UCD) NO CHG* See Sep Rpt
--- NOTE | 2025-02-11 13:07 | ESPR_ITS ---
<Statement entered by Nathalie Arvizu MD - 02/12/25 21:56> Patient was seen and examined by me personally. I have directly supervised and reviewed documentation by the team resident and agree with its findings with any exceptions or additional findings as below. Plan of care was discussed with the attending, Dr. Dickerson. Overnight admission. Patient is a 69-year-old male with past medical history of hypertension, hyperlipidemia, type 2 diabetes mellitus, developmental delay, muscular disorder, bipolar disorder, questionable seizure disorder on valproate was brought to the ED from half-way facility after he was noticed to have tachycardia. Patient was found to be cocci positive and was started on fluconazole. Will continue with IV ceftriaxone and azithromycin as well in case of superimposed bacterial pneumonia and continue to follow cultures. Patient is on 2L O2 and will attempt to wean as tolerated. Nathalie Arvizu, PGY-2 Documentation for date of: 02/11/25 Subjective Subjective Interval history: 02/11/2025: Overnight admission for 69-year-old male with past medical history of hypertension, hyperlipidemia, type 2 diabetes, bipolar disorder, history of seizures presenting from [facility] to the ED for tachycardia with a heart rate of 119 and mildly febrile with temperature of 99.5 ?F. Patient was admitted and started on IV antibiotics for bilateral pneumonia with echo ordered to rule out heart failure. Patient's cocci serologies came back positive and he will be started on IV fluconazole. Will continue to monitor the patient and follow-up on blood and urine cultures. Exam Vital Signs Temp Pulse Resp BP Pulse Ox O2 Del Method O2 Flow Rate 96.8 F 73 10 L 135/86 H 99 Nasal Cannula 2 02/11/25 08:00 02/11/25 11:19 02/11/25 11:19 02/11/25 08:00 02/11/25 11:19 02/11/25 08:00 02/11/25 11:19 Narrative Exam GEN: Awake, able to follow some commands. HEENT: NC/AC,oral mucosa moist, neck supple. CVS: RRR, S1-S2 present, no murmurs appreciated. RESP: Coarse crepitations B/L. GI: Soft,non distended, non tender, NBS. MSK: Able to move all 4 limbs, no lower extremity edema. SKIN: Warm and dry. ON SITE WASTEWATER SYSTEMS TECHNICIAN: AOx1 at baseline, CN II-XII and Sensation grossly intact. Objective Labs 02/12/25 04:53 02/12/25 04:53 Labs: Laboratory Results - last 24 hr 02/10/25 02/10/25 02/10/25 20:07 21:23 23:19 WBC 11.0 H RBC 4.22 L Hgb 13.1 L Hct 39.1 L MCV 93 MCH 31.0 MCHC 33.5 RDW Std Deviation 43.4 Plt Count 215 Neut % (Auto) 72 Lymph % (Auto) 18 [place] % (Auto) 8 Eos % (Auto) 1 Baso % (Auto) 1 Neut # (Auto) 8.0 H Lymph # (Auto) 2.0 [place] # (Auto) 0.8 Eos # (Auto) 0.1 Baso # (Auto) 0.1 Immature Gran # (Auto) 0.04 H Absolute Nucleated RBC 0.00 Immature Gran % 0 Nucleated RBC % 0 PT 10.8 INR 1.0 APTT 24.7 Sodium 139 Potassium 4.2 Chloride 104 Carbon Dioxide 25.9 Anion Gap 9 BUN 26 H Creatinine 0.9 Estim Creat Clear Calc 71.9 eGFR > 60 BUN/Creatinine Ratio 29 H Glucose 248 H Calculated Osmolality 290 Lactic Acid 3.1 H 1.9 Calcium 9.0 Corrected Calcium 9.4 Total Bilirubin 0.3 AST 16 ALT 10 Alkaline Phosphatase 66 Troponin I < 0.002 Total Protein 6.4 Albumin 3.5 Globulin 2.9 Albumin/Globulin Ratio 1.2 Procalcitonin 0.15 Ur Collection Type Catheter Urine Color Lt-Yellow Urine Clarity Clear Urine pH 6.0 Ur Specific [place] 1.023 Urine Protein Negative Urine Glucose (UA) 3+ A Urine Ketones 1+ A Urine Blood Negative Urine Nitrite Negative Urine Bilirubin Negative Urine Urobilinogen (Auto) Negative Ur Leukocyte Esterase Negative Urine RBC 3 Urine WBC 1 Ur Squamous Epith Cells < 1 Urine Bacteria None Coccidioides IgM Ab 02/11/25 05:41 WBC 8.2 RBC 3.83 L Hgb 12.0 L Hct 36.3 L MCV 95 MCH 31.3 MCHC 33.1 RDW Std Deviation 44.2 H Plt Count 198 Neut % (Auto) 58 Lymph % (Auto) 32 [place] % (Auto) 7 Eos % (Auto) 2 Baso % (Auto) 1 Neut # (Auto) 4.8 Lymph # (Auto) 2.6 [place] # (Auto) 0.6 Eos # (Auto) 0.2 Baso # (Auto) 0.1 Immature Gran # (Auto) 0.03 H Absolute Nucleated RBC 0.00 Immature Gran % 0 Nucleated RBC % 0 PT INR APTT Sodium 140 Potassium 3.6 D Chloride 107 Carbon Dioxide 26.6 Anion Gap 6 L BUN 16 Creatinine 0.7 Estim Creat Clear Calc 103.3 eGFR > 60 BUN/Creatinine Ratio 23 H Glucose 93 D Calculated Osmolality 280 Lactic Acid Calcium 8.0 L Corrected Calcium Total Bilirubin AST ALT Alkaline Phosphatase Troponin I Total Protein Albumin Globulin Albumin/Globulin Ratio Procalcitonin Ur Collection Type Urine Color Urine Clarity Urine pH Ur Specific [place] Urine Protein Urine Glucose (UA) Urine Ketones Urine Blood Urine Nitrite Urine Bilirubin Urine Urobilinogen (Auto) Ur Leukocyte Esterase Urine RBC Urine WBC Ur Squamous Epith Cells Urine Bacteria Coccidioides IgM Ab Positive A Quality Measures Quality Measures sepsis Current suspected stage: ruled out Possible source: pulmonary Blood cultures ordered: completed in ED Antibiotic ordered: Yes Advance care planning discussed with:: other (Nephew) Assessment & Plan Assessment Current Active Medications: Generic Name Dose Route Start Last Admin Trade Name Freq PRN Reason Stop Dose Admin Acetaminophen 650 mg 02/10/25 21:51 Acetaminophen 325 Mg Tablet PO 03/12/25 21:50 Q6H PRN Fever >101.5 Atorvastatin Calcium 40 mg 02/11/25 21:00 Atorvastatin Calcium 20 Mg Tablet PO 03/13/25 20:59 HS BRI Dextrose 25 ml 02/10/25 21:54 Dextrose 50%-Water Inj 50 Ml Syringe IV 03/12/25 21:53 Q15MIN PRN BG 50-70 responsive npo pt Dextrose 50 ml 02/10/25 21:54 Dextrose 50%-Water Inj 50 Ml Syringe IV 03/12/25 21:53 Q15MIN PRN BG <50 OR BG <70 & pt unresponsive Divalproex Sodium 250 mg 02/11/25 00:15 02/11/25 05:42 Divalproex Sod Ec 125 Mg Tabec PO 03/13/25 00:14 250 mg TID BRI Administration Enoxaparin Sodium 40 mg 02/11/25 09:00 02/11/25 08:30 Enoxaparin Sod Inj 40 Mg/0.4 Ml Syringe SC 02/25/25 08:59 40 mg QDAY BRI Administration Glucagon 1 mg 02/10/25 21:54 Glucagon Inj 1 Mg Vial IM Q15MIN PRN BG <70, and no IV access Sodium Chloride 1,000 mls @ 60 mls/hr 02/10/25 22:00 02/10/25 22:57 Ns IV 03/12/25 21:59 60 mls/hr .[id number] BRI Administration Ceftriaxone Sodium/Dextrose 1 gm in 50 mls @ 100 mls/hr 02/11/25 21:00 Rocephin/D5w 1gm Iv Premix IV 02/18/25 20:59 QDAY@2100 BRI Azithromycin 500 mg/ Sodium 250 mls @ 250 mls/hr 02/11/25 21:00 Chloride IV 02/18/25 20:59 QDAY@2100 BRI Insulin Glargine 10 unit 02/11/25 21:00 Insulin Glargine (Lantus) 5 Unit/0.05 Ml (Per 5 Units) SC 03/13/25 20:59 HS [facility] Insulin Human Lispro 0 unit 02/11/25 07:30 02/11/25 11:52 Insulin Lispro (Admelog) 1 Unit/0.01 Ml Unit SC 03/13/25 07:29 Not Given AC [facility] Protocol Plan 69-year-old male patient with past medical history of hypertension, hyperlipidemia, diabetes mellitus, and encephalopathy, muscular disorder, bipolar disorder, questionable seizure disorder on valproate was brought to the ED from half-way facility after he was noticed to have tachycardia. Patient was admitted for IV antibiotic treatment of bilateral pneumonia and IV fluconazole for positive cocci serologies. #Community-acquired pneumonia #Coccidiomycosis infection Patient presented from SNF with elevated heart rates and fevers In the ED, patient's heart rate was 119, respiratory rate of 17, O2 sat of 90% on room air increased to 97 on 2 L of oxygen. WBC found to be elevated 11.0, CMP was only significant for blood glucose of 248, lactic acid of 3.1, Pro-Geraldo was negative and serum creatinine is 0.9 Chest x-ray showed bilateral pneumonia EKG showed sinus tachycardia. Cocci serologies positive Plan: Added IV fluconazole 400 mg Continue azithromycin and ceftriaxone Follow-up on the blood cultures and urine cultures Follow-up on the MRSA screening test Follow-up on the Legionella screening test Speech evaluation to rule out aspiration as the patient noticed to have muscular dystrophy unspecified in his SNF documents Aspiration precautions #Possible heart failure exacerbation, unknown EF Per medical reconciliation it was noted that the patient is on Entresto 1 tab p.o. 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 daily Plan Will hold home medications at this time, restart when appropriate #History of seizure disorders #History of bipolar disorder As per chart review patient is on valproate Plan Restarted home medication #Insulin-dependent type 2 diabetes mellitus Patient was noticed to be using insulin at the facility. Plan: Lantus 10u HS SSI Follow-up on the A1c level #Hyperlipidemia On home atorvastatin 40mg po hs Plan: Restarted home medications Hospital Management: Lines: PIV Diet: Dysphagia II Bowel: Senna GI prophylaxis: Not needed DVT prophylaxis: Lovenox Dispo: IV antibiotics for community-acquired pneumonia, IV fluconazole for cocci Code: DNR Patient seen and examined with attending Dr. Dickerson and senior resident Dr. Nolberto Bob, PGY-1 Attending Provider Attestation/Addendum Liliana, Elham Dickerson, DO, attest that I was physically present for the wing portions of the service and evaluated the patient with the resident and I reviewed and discussed the case with the resident and agree with the resident's findings and plans of care as documented above Patient seen and evaluated this AM. She is A&Ox1 and appears to be at baseline mental status. Patient found to be cocci positive and started on fluconazole in addition to Iv antibiotics for community acquired pneumonia. He remains on 2L/NC. Patient has no complaints at this time. Echo is pending. Anticipate DC within next 24-48h if patient remains stable
[2025-02-11] MEDS: FLUCONAZOLE/NS 400 MG IVPB 400 MG/200 ML BAG 100 MG IV (15:46)
[2025-02-11] MEDS: INSULIN LISPRO (AdmeLOG) 1 UNIT/0.01 ML UNIT SC (17:15)
[2025-02-11] MEDS: SODIUM CHLORIDE 0.9% 1000 ML 1,000 ML 60 ML IV (18:26)
[2025-02-11] MEDS: ATORVASTATIN CALCIUM 20 MG TABLET 40 MG PO (20:39)
[2025-02-11] MEDS: cefTRIAXone/D5w 1gm IV premix 1 GM/50 ML BAG IV (20:39)
[2025-02-11] MEDS: INSULIN GLARGINE (Lantus) 5 UNIT/0.05 ML (PER 5 UNITS) 10 UNIT SC (20:50)
[2025-02-11] MEDS: AZITHROMYCIN INJ 500 MG in SODIUM CHLORIDE 0.9% 250 ML 250 ML 250 MG IV (20:50)
--- NOTE | 2025-02-11 21:57 | ECHO_ITS ---
Transthoracic Echo Report Ht (in): 66 Wt (lb): 182 Exam Location: Echo Lab Status: Inpatient Senior Payroll Specialist: MARY Nicolas^^^^ Indications: Procedure Performed: BP: 124 / 74 HR: 57 Technical Quality: Technically difficult study MEASUREMENTS (Male / Female) Normal Values 2D ECHO LV Diastolic Diameter PLAX 4.1 cm 4.2 - 5.9 / 3.9 - 5.3 cm LV Systolic Diameter PLAX 2.5 cm IVS Diastolic Thickness 0.8 cm 0.6 - 1.0 / 0.6 - 0.9 cm LVPW Diastolic Thickness 0.9 cm 0.6 - 1.0 / 0.6 - 0.9 cm LV Relative Wall Thickness 0.4 LVOT Diameter 1.6 cm Aortic Root Diameter 3.1 cm LA Systolic Diameter LX 2.6 cm 3.0 - 4.0 / 2.7 - 3.8 cm DOPPLER AV Peak Velocity 136.0 cm/s AV Peak Gradient 7.4 mmHg AV Mean Gradient 5.0 mmHg AV Velocity Time Integral 26.2 cm LVOT Peak Velocity 97.5 cm/s LVOT Peak Gradient 3.8 mmHg LVOT Velocity Time Integral 32.0 cm LVOT Cardiac Index 1848.5 cm?/min?m? AV Area Cont Eq vti 2.5 cm? AV Area Cont Eq pk 1.4 cm? MV Area PHT 3.8 cm? Mitral E Point Velocity 64.9 cm/s Mitral A Point Velocity 84.2 cm/s Mitral E to A Ratio 0.8 LV E' Lateral Velocity 6.1 cm/s Mitral E to LV E' Lateral Ratio 10.6 LV E' Septal Velocity 7.0 cm/s Mitral E to LV E' Septal Ratio 9.2 TR Peak Velocity 200.0 cm/s TR Peak Gradient 16.0 mmHg FINDINGS Left Ventricle Normal left ventricular size, wall thickness, systolic function with no obvious regional wall motion abnormalities. There is grade I diastolic dysfunction of the left ventricle (impaired relaxation pattern). The left ventricular ejection fraction is normal, estimated at 55-60%. Right Ventricle The right ventricle is normal in size and systolic function. The estimated right ventricular systolic pressure, 17 mmHg. Left Atrium The left atrium is normal by two-dimensional, color flow and Doppler imaging with no structural abnormalities, no thrombus formation present. Right Atrium The right atrium is normal by two-dimensional imaging, color flow and Doppler imaging with no structural abnormalities, no thrombus formation present. Atrial Septum The interatrial septum appears normal with no evidence of a shunt. Aorta The aorta is normal by two-dimensional, color flow and Doppler interrogation. Mitral Valve Trace to mild mitral regurgitation. Mild mitral annular calcification. Aortic Valve The aortic valve is trileaflet and normal by two-dimensional, color flow and Doppler interrogation. There is no significant aortic valve regurgitation. Tricuspid Valve There is mild tricuspid valve regurgitation. Pulmonic Valve The pulmonic valve is not well visualized. There is no significant pulmonic valve regurgitation. Vessels The pulmonary artery appears normal. The inferior vena cava pulmonary and hepatic veins appear normal. Pericardium The pericardium is normal by two-dimensional imaging. There is no significant pericardial effusion. CONCLUSIONS Indication: CHF Suboptimal images with technically difficult study Normal LV size and function with an estimated EF of 55 to 60%. Diastolic dysfunction stage I Normal RV size and function with normal RVSP EF of around 20 to 25 mmHg. Trace MR, mild TR and mild MAC Gomez Hoodumansaad (Electronically Signed) Final Date: 12 February 2025 20:50
[2025-02-12] VITALS (9 sets, daily range): BP systolic 111–131; BP diastolic 59–81; PULSE 68–92; RESP 15–97; TEMP 36–36.8; O2SAT 96–99; BMI 30.9
--- NOTE | 2025-02-12 00:21 | PC.RT ---
pt unable to produce sputum for sample.
[2025-02-12] MEDS: DIVALPROEX SOD EC 125 MG TABEC 250 MG PO ×3 (05:37→21:11)
[2025-02-12 06:06] LABS: Basophils % (Auto) 0 % (0-2.5); Eosinophils # (Auto) 0.2 Thou/mm3 (0.0-0.5); Eosinophils % (Auto) 3 % (0-10); Hematocrit 34.6 % (41.0-53.0); Hemoglobin 11.8 g/dL (13.5-16.0); Immature Granulocytes % (Auto) 1 % (0-0); Immature Granulocytes Auto 0.04 Thou/mm3 (0.00-0.00); Lymphocytes # (Auto) 2.7 Thou/mm3 (1.0-4.8); Lymphocytes % (Auto) 33 % (10-50); Mean Corpuscular HGB Conc 34.1 g/dl (31.0-37.0); Mean Corpuscular Hemoglobin 31.3 pg (25.0-35.0); Mean Corpuscular Volume 92 fL (80-100); Monocytes # (Auto) 0.6 Thou/mm3 (0.0-0.8); Monocytes % (Auto) 7 % (0-12); Neutrophils # (Auto) 4.7 Thou/mm3 (1.8-7.7); Neutrophils % (Auto) 57 % (37-80); Nucleated Red Blood Cell % 0 /100 WBC (0); Platelet Count 198 Thou/mm3 (140-440); RDW Standard Deviation 41.8 fL (35.1-43.9); Red Blood Count 3.77 Miln/mm3 (4.50-5.90); White Blood Count 8.3 Thou/mm3 (3.8-10.6)
[2025-02-12 06:34] LABS: Anion Gap 6 (7-16); BUN/Creatinine Ratio 22 Ratio (12-20); Blood Urea Nitrogen 13 mg/dL (9-23); Calcium 8.4 mg/dL (8.3-10.6); Carbon Dioxide 28.9 mMol/L (20.0-31.0); Chloride 104 mMol/L (98-107); Creatinine (Component) 0.6 mg/dL (0.6-1.3); Estimated Creatinine Clearance 123.8 mL/min (>60); Glucose 80 mg/dL (74-106); Osmolality,Calculated 276 (275-295); Potassium 3.8 mMol/L (3.4-5.1); Sodium 139 mMol/L (136-145); eGFR > 60 See Note
[2025-02-12 06:50] LABS: Glucose Estimated Average 166 mg/dL (80-131); Hemoglobin A1C 7.4 % Hgb (4.8-6.0)
[2025-02-12] MEDS: FLUCONAZOLE/NS 400 MG IVPB 400 MG/200 ML BAG 100 MG IV (09:17)
[2025-02-12] MEDS: SENNA TABLET 1 TAB PO (09:18)
[2025-02-12] MEDS: ENOXAPARIN SOD INJ 40 MG/0.4 ML SYRINGE SC (09:18)
--- NOTE | 2025-02-12 10:20 | PC.SS ---
Patient Sandip Granados is a 69 Year old male admitted for Sepsis. SS contacted patient's niece, Luciana Tre who reports is patient's surrogate decision maker [phone]. She reports patient has been at [facility] for 2 Years. Patient is bed-bound and is not able to ambulate, patient needs assistance completing all ADL's. At time of discharge patient will return back to [facility]. SS will need to assist with transportation. Next of Kin: Ana kothari [phone] Discharge Plan: [facility]
--- NOTE | 2025-02-12 14:30 | ESPR_ITS ---
<Statement entered by Nathalie Arvizu MD - 02/13/25 08:31> Patient was seen and examined by me personally. I have directly supervised and reviewed documentation by the team resident and agree with its findings with any exceptions or additional findings as below. Plan of care was discussed with the attending, Dr. Ivy. Nathalie Arvizu, PGY-2 Documentation for date of: 02/12/25 Subjective Subjective Interval history: 02/12/2025: No acute overnight events to report. Patient seen and examined in hospital bed remains at his regular baseline. Patient's vitals are stable and he has had 1 bowel movement noted per nursing staff. Patient's urine cultures are still pending but blood cultures show no growth within 24 hours. Patient continues to be treated with IV antibiotics for community-acquired pneumonia and fluconazole for the cocci infection. Planning to discharge patient within the next 24 hours, pending final echocardiogram read. Exam Vital Signs Temp Pulse Resp BP Pulse Ox O2 Del Method O2 Flow Rate 97.4 F 84 16 111/59 L 98 Room Air 2 02/12/25 12:00 02/12/25 12:00 02/12/25 12:00 02/12/25 12:00 02/12/25 12:00 02/12/25 12:00 02/12/25 07:10 Narrative Exam GEN: Awake, able to follow some commands. HEENT: NC/AC,oral mucosa moist, neck supple. CVS: RRR, S1-S2 present, no murmurs appreciated. RESP: Coarse crepitations B/L. GI: Soft,non distended, non tender, NBS. MSK: Able to move all 4 limbs, no lower extremity edema. SKIN: Warm and dry. DIRECTOR CORPORATE COMPLIANCE: AOx1 at baseline, CN II-XII and Sensation grossly intact. Objective Labs 02/12/25 04:53 02/12/25 04:53 Labs: Laboratory Results - last 24 hr 02/12/25 04:53 WBC 8.3 RBC 3.77 L Hgb 11.8 L Hct 34.6 L MCV 92 MCH 31.3 MCHC 34.1 RDW Std Deviation 41.8 Plt Count 198 Neut % (Auto) 57 Lymph % (Auto) 33 [place] % (Auto) 7 Eos % (Auto) 3 Baso % (Auto) 0 Neut # (Auto) 4.7 Lymph # (Auto) 2.7 [place] # (Auto) 0.6 Eos # (Auto) 0.2 Baso # (Auto) 0.0 Immature Gran # (Auto) 0.04 H Absolute Nucleated RBC 0.00 Immature Gran % 1 H Nucleated RBC % 0 Sodium 139 Potassium 3.8 Chloride 104 Carbon Dioxide 28.9 Anion Gap 6 L BUN 13 Creatinine 0.6 Estim Creat Clear Calc 123.8 eGFR > 60 BUN/Creatinine Ratio [address] Glucose [address] Glu mg/dL 166 H Hemoglobin A1c 7.4 H Calculated Osmolality 276 Calcium 8.4 Quality Measures Quality Measures sepsis Current suspected stage: ruled out Possible source: pulmonary Blood cultures ordered: completed in ED Antibiotic ordered: Yes Advance care planning discussed with:: other (Nephew) Assessment & Plan Assessment Current Active Medications: Generic Name Dose Route Start Last Admin Trade Name Freq PRN Reason Stop Dose Admin Acetaminophen 650 mg 02/10/25 21:51 Acetaminophen 325 Mg Tablet PO 03/12/25 21:50 Q6H PRN Fever >101.5 Atorvastatin Calcium 40 mg 02/11/25 21:00 02/11/25 20:39 Atorvastatin Calcium 20 Mg Tablet PO 03/13/25 20:59 40 mg HS BRI Administration Dextrose 25 ml 02/10/25 21:54 Dextrose 50%-Water Inj 50 Ml Syringe IV 03/12/25 21:53 Q15MIN PRN BG 50-70 responsive npo pt Dextrose 50 ml 02/10/25 21:54 Dextrose 50%-Water Inj 50 Ml Syringe IV 03/12/25 21:53 Q15MIN PRN BG <50 OR BG <70 & pt unresponsive Divalproex Sodium 250 mg 02/11/25 00:15 02/12/25 14:27 Divalproex Sod Ec 125 Mg Tabec PO 03/13/25 00:14 250 mg TID BRI Administration Enoxaparin Sodium 40 mg 02/11/25 09:00 02/12/25 09:18 Enoxaparin Sod Inj 40 Mg/0.4 Ml Syringe SC 02/25/25 08:59 40 mg QDAY BRI Administration Glucagon 1 mg 02/10/25 21:54 Glucagon Inj 1 Mg Vial IM Q15MIN PRN BG <70, and no IV access Ceftriaxone Sodium/Dextrose 1 gm in 50 mls @ 100 mls/hr 02/11/25 21:00 02/11/25 23:01 Rocephin/D5w 1gm Iv Premix IV 02/18/25 20:59 Infused QDAY@2100 BRI Infusion Azithromycin 500 mg/ Sodium 250 mls @ 250 mls/hr 02/11/25 21:00 02/11/25 23:01 Chloride IV 02/18/25 20:59 Infused QDAY@2100 BRI Infusion Fluconazole 400 mg in 200 mls @ 100 mls/hr 02/11/25 15:20 02/12/25 09:17 Diflucan/Ns Ivpb IV 02/18/25 15:19 100 mls/hr QDAY BRI Administration Insulin Glargine 10 unit 02/11/25 21:00 02/11/25 20:50 Insulin Glargine (Lantus) 5 Unit/0.05 Ml (Per 5 Units) SC 03/13/25 20:59 10 unit HS BRI Administration Insulin Human Lispro 0 unit 02/11/25 07:30 02/12/25 12:19 Insulin Lispro (Admelog) 1 Unit/0.01 Ml Unit SC 03/13/25 07:29 Not Given AC [facility] Protocol Sennosides 1 tab 02/12/25 09:00 02/12/25 09:18 Senna Tablet PO 03/14/25 08:59 1 tab QDAY BRI Administration Protocol Plan 69-year-old male patient with past medical history of hypertension, hyperlipidemia, diabetes mellitus, and encephalopathy, muscular disorder, bipolar disorder, questionable seizure disorder on valproate was [facility] ED [facility] after he was noticed to have tachycardia. Patient was admitted for IV antibiotic treatment of bilateral pneumonia and IV fluconazole for positive cocci serologies. #Community-acquired pneumonia #Coccidiomycosis infection Patient presented from [facility] with elevated heart rates and fevers In the ED, patient's heart rate was 119, respiratory rate of 17, O2 sat of 90% on room air increased to 97 on 2 L of oxygen. WBC found to be elevated 11.0, CMP was only significant for blood glucose of 248, lactic acid of 3.1, Pro-Geraldo was negative and serum creatinine is 0.9 Chest x-ray showed bilateral pneumonia EKG showed sinus tachycardia. Cocci serologies positive Blood cultures show no growth at 24 hours, MRSA screen negative Patient passed swallow evaluation by speech therapy Plan: Continue IV fluconazole 400 mg Continue azithromycin and ceftriaxone Follow-up on urine cultures Follow-up on the Legionella screening test #Possible heart failure exacerbation, unknown EF Per medical reconciliation it was noted that the patient is on Entresto 1 tab p.o. twice daily Patient's x-ray as noted above shows bilateral pneumonia which could be secondary to heart failure exacerbation On examination patient does have some signs of heart failure with crackles noted on auscultation but no JVD and no significant peripheral edema Unsure exactly what the patient's avid editor is at this time Plan: Echocardiogram pending final read Holding Entresto at this time as the patient's blood pressures have been normotensive #Hypertension At this time patient's blood pressure on the soft side at 105/70 Patient on 1 tab of Entresto and Lasix 40 mg p.o. daily Plan Will hold home medications at this time, restart when appropriate #History of seizure disorders #History of bipolar disorder As per chart review patient is on valproate Plan Continue home medication #Insulin-dependent type 2 diabetes mellitus Patient was noticed to be using insulin at the facility A1c 7.4 on 02/12. Plan: Lantus 10u HS SSI #Hyperlipidemia On home atorvastatin 40mg po hs Plan: Continue home medications Hospital Management: Lines: PIV Diet: Dysphagia II Bowel: Senna GI prophylaxis: Not needed DVT prophylaxis: Lovenox Dispo: IV antibiotics for community-acquired pneumonia, IV fluconazole for cocci Code: DNR Patient seen and examined with attending Dr. Ivy and senior resident Dr. Nolberto Bob, PGY-1 Attending Provider Attestation/Addendum I attest that I was physically present for the evaluation, physical examination, lab and imaging review of the patient with the residents. I discussed the case with the residents and agree with the findings and plans of care as documented above. At bedside today, patient states he is feeling well and appears to be in his baseline. Vital signs are stable, saturating well on room air. We will plan for discharge tomorrow, if continues to be stable pending echocardiography and culture results. Juanpablo Ivy MD
[2025-02-12] MEDS: INSULIN LISPRO (AdmeLOG) 1 UNIT/0.01 ML UNIT SC (16:46)
[2025-02-12] MEDS: ATORVASTATIN CALCIUM 20 MG TABLET 40 MG PO (20:55)
[2025-02-12] MEDS: cefTRIAXone/D5w 1gm IV premix 1 GM/50 ML BAG IV (20:56)
[2025-02-12] MEDS: INSULIN GLARGINE (Lantus) 5 UNIT/0.05 ML (PER 5 UNITS) 10 UNIT SC (21:11)
[2025-02-12] MEDS: AZITHROMYCIN INJ 500 MG in SODIUM CHLORIDE 0.9% 250 ML 250 ML 250 MG IV (21:35)
[2025-02-13] VITALS (7 sets, daily range): BP systolic 121–158; BP diastolic 72–88; PULSE 76–95; RESP 12–94; TEMP 36.3–37.1; O2SAT 94–99; BMI 28.9
[2025-02-13] MEDS: DIVALPROEX SOD EC 125 MG TABEC 250 MG PO (05:25)
[2025-02-13 05:41] LABS: Basophils # (Auto) 0.1 Thou/mm3 (0.0-0.2); Basophils % (Auto) 1 % (0-2.5); Eosinophils # (Auto) 0.1 Thou/mm3 (0.0-0.5); Eosinophils % (Auto) 1 % (0-10); Hematocrit 34.4 % (41.0-53.0); Hemoglobin 11.6 g/dL (13.5-16.0); Immature Granulocytes % (Auto) 0 % (0-0); Immature Granulocytes Auto 0.03 Thou/mm3 (0.00-0.00); Lymphocytes # (Auto) 2.4 Thou/mm3 (1.0-4.8); Lymphocytes % (Auto) 30 % (10-50); Mean Corpuscular HGB Conc 33.7 g/dl (31.0-37.0); Mean Corpuscular Hemoglobin 31.5 pg (25.0-35.0); Mean Corpuscular Volume 94 fL (80-100); Monocytes # (Auto) 0.7 Thou/mm3 (0.0-0.8); Monocytes % (Auto) 8 % (0-12); Neutrophils # (Auto) 4.8 Thou/mm3 (1.8-7.7); Neutrophils % (Auto) 60 % (37-80); Nucleated Red Blood Cell % 0 /100 WBC (0); Platelet Count 225 Thou/mm3 (140-440); RDW Standard Deviation 42.8 fL (35.1-43.9); Red Blood Count 3.68 Miln/mm3 (4.50-5.90)
[2025-02-13 06:13] LABS: Anion Gap 8 (7-16); BUN/Creatinine Ratio 19 Ratio (12-20); Blood Urea Nitrogen 13 mg/dL (9-23); Calcium 8.5 mg/dL (8.3-10.6); Carbon Dioxide 29.2 mMol/L (20.0-31.0); Chloride 104 mMol/L (98-107); Creatinine (Component) 0.7 mg/dL (0.6-1.3); Estimated Creatinine Clearance 106.1 mL/min (>60); Glucose 85 mg/dL (74-106); Osmolality,Calculated 280 (275-295); Potassium 3.7 mMol/L (3.4-5.1); Sodium 141 mMol/L (136-145); eGFR > 60 See Note
[2025-02-13 06:34] LABS: Legionella Ag, EIA, Urine* NOT DETECTED
[2025-02-13] MEDS: ENOXAPARIN SOD INJ 40 MG/0.4 ML SYRINGE SC (08:36)
[2025-02-13] MEDS: SENNA TABLET 1 TAB PO (08:36)
[2025-02-13] MEDS: FLUCONAZOLE/NS 400 MG IVPB 400 MG/200 ML BAG 100 MG IV (08:36)
--- NOTE | 2025-02-13 09:18 | PC.SS ---
SS was informed by team pt will be DC today. SS spoke to Mine and sent updated clinicals via [facility]. SS pending DC orders to set up transport
--- NOTE | 2025-02-13 09:34 | PC.SS ---
SS spoke to pt taye Toledo [phone] in regards to pt DC, she confirmed [facility]. IMM provided.
--- NOTE | 2025-02-13 10:49 | PC.SS ---
Addendum entered by Elva Ascencio 02/13/25 10:51: ETA 1300 with [facility], RN Mine Clarke from [facility] and pt Jose E Chowdhury made aware Original Note: set up transport with [facility] Ref #[id number], [facility] released to [facility]. SS spoke to [facility] at [facility] and ETA set for 13
[2025-02-13] MEDS: INSULIN LISPRO (AdmeLOG) 1 UNIT/0.01 ML UNIT SC (11:31)
--- NOTE | 2025-02-13 13:30 | ESDS_ITS ---
<Statement entered by Nathalie Arvizu MD - 02/14/25 07:44> Patient was seen and examined by me personally. I have reviewed the below documentation by the team resident and agree with its findings with any exceptions as below. Discharge plan was discussed with the attending, Dr. Ivy. Nathalie Arvizu, PGY-2 Planned Discharge Date 02/13/25 DS: Providers Provider Date of admission: 02/10/25 21:52 Primary care physician: Reva Flores MD Admitting Provider: Oliverio Cardenas MD Attending Provider on Admission: Juanpablo Ivy MD Consults: 02/11/25 02:34 Referral Registered Dietitian Urgent Comment: Referral Wound Care Urgent Comment: LEFT BUTTOCK, COCCYX, GROIN MASD 02/11/25 08:30 Referral - CIRCUS AGENT Special Procedures Nurse Routine Comment: manuel Branch Attending Provider on DC: Jaquan Bob MD Discharging Provider: Jaquan Bob MD DS: Diagnosis Problem List Completed Was Problem List Reviewed/Reconciled?: Yes Hospital Course Hospital Course Hospital course: 69-year-old male with past medical history of hypertension, hyperlipidemia, diabetes mellitus, encephalopathy, muscular disorder, bipolar disorder, seizure disorder on valproate presented to the ED on 02/10 from [facility] due to tachycardia noticed by medical staff. In the ED, patient was at his baseline (oriented x 1 only to self), tachycardic with heart rate of 119, hypoxic requiring 2 L nasal cannula oxygen, WBC of 11, lactic acid 3.1 and chest x-ray showing bilateral pneumonia. EKG ordered showed sinus tachycardia. Patient was admitted for community-acquired pneumonia and started on IV antibiotics. There was some suspicion about possible heart failure exacerbation as the patient was found to be taking Entresto. Echocardiogram which was ordered showed normal left ventricular size and function with an ejection fraction of 55 to 60% with grade 1 diastolic dysfunction. Overnight further testing results came back and the patient was found to have positive cocci serologies and IV fluconazole were started. Patient made remarkable improvement and supplemental oxygen requirements diminished. Patient will be discharged [facility] to SNF with the following strict instructions. Please take Augmentin 500-125mg by mouth three times a day and Doxycycline 100mg by mouth twice a day for pneumonia Please take Fluconazole 400mg by mouth daily for Valley Fever Stop taking Glipizide 10mg, but continue taking all other medications for diabetes Continue taking all other home medications as prescribed Follow-up with your PCP within 1-2 weeks after discharge Please follow up with [facility] Preston cocci titer results with your PCP or make an appointment at the [facility] [address] [place] [address] If your symptoms worsen or if you develop new fever/chills, chest pain, shortness of breath or bleeding - please come back to the ED immediately. Hospital Diagnosis: #Community-acquired pneumonia #Coccidiomycosis infection #Hypertension #History of seizure disorders #History of bipolar disorder #Insulin-dependent type 2 diabetes mellitus #Hyperlipidemia Jaquan Bob, PGY-1 Status at Discharge Overall status at discharge: patient is progressing back to baseline Time Spent with Patient Time attestation: Total time spent providing and/or coordinating discharge services: 45 minutes Time spent: Greater than 30 minutes Exam Vital Signs Temp Pulse Resp BP Pulse Ox O2 Del Method O2 Flow Rate 97.4 F 95 14 158/88 H 96 Room Air 2 02/13/25 12:45 02/13/25 12:45 02/13/25 12:45 02/13/25 12:45 02/13/25 12:45 02/13/25 12:45 02/12/25 07:10 Narrative Exam GEN: Awake, able to follow some commands. HEENT: NC/AC,oral mucosa moist, neck supple. CVS: RRR, S1-S2 present, no murmurs appreciated. RESP: Coarse crepitations B/L. GI: Soft,non distended, non tender, NBS. MSK: Able to move all 4 limbs, no lower extremity edema. SKIN: Warm and dry. RECONCILIATION MANAGER: AOx1 at baseline, CN II-XII and Sensation grossly intact. Discharge Plan Plan Patient Disposition: Xfer Skilled Nsg Fac (SNF) Patient condition on transfer: Stable Care Plan Goals: Please take Augmentin 500-125mg by mouth three times a day and Doxycycline 100mg by mouth twice a day for pneumonia Please take Fluconazole 400mg by mouth daily for Valley Fever Stop taking Glipizide 10mg, but continue taking all other medications for diabetes Continue taking all other home medications as prescribed Follow-up with your PCP within 1-2 weeks after discharge Please follow up with [facility] cocci titer results with your PCP or make an appointment at the [facility] [address] [place] [address] If your symptoms worsen or if you develop new fever/chills, chest pain, shortness of breath or bleeding - please come back to the ED immediately. Prescriptions/Referrals Prescriptions/Med Rec: New fluconazole 200 mg tablet 400 mg PO QDAY 30 Days Qty: 60 0RF amoxicillin-pot clavulanate 500-125 mg tablet 1 tab PO TID 5 Days Qty: 15 0RF doxycycline monohydrate 100 mg capsule 100 mg PO BID 5 Days Qty: 10 0RF Continued atorvastatin 40 mg tablet 40 mg PO HS divalproex 250 mg tablet,delayed release (DR/EC) 250 mg PO TID metformin 500 mg tablet 500 mg PO BID insulin glargine [Basaglar KwikPen U-100 Insulin] 100 unit/mL (3 mL) insulin pen 18 unit SUBCUT HS bisacodyl [Dulcolax (bisacodyl)] 10 mg suppository 10 mg HI .q72hr PRN (Reason: constipation) Entresto 24-26 mg tablet 1 tab PO BID famotidine [Acid Controller] 20 mg tablet 20 mg PO QDAY Enema 19-7 gram/118 mL enema 118 ml HI Q72H PRN (Reason: constipation) Rx Instructions: if dulcolax suppository ineffective furosemide [Lasix] 40 mg tablet 40 mg PO QDAY multivitamin [Daily Multi-Vitamin] Tablet 1 tab PO QDAY insulin aspart U-100 [Novolog FlexPen U-100 Insulin] 100 unit/mL (3 mL) insulin pen 1 sliding scale dose subcut USEASDIRECTD risperidone [Risperdal] 0.5 mg tablet 0.5 mg PO Q8HR risperidone [Risperdal] 1 mg tablet 1 mg PO BID Rx Instructions: every am and at hs acetaminophen [Tylenol] 325 mg tablet 650 mg PO Q6H PRN (Reason: pain (scale score 1-3)) ascorbic acid (vitamin C) [C-500] 500 mg tablet 500 mg PO QDAY zinc 50 mg capsule 50 mg PO QDAY Discontinued glipizide 10 mg tablet 10 mg PO BID Referrals: Reva Flores MD [Primary Care Provider] - Patient/Caregiver Discharge Instructions Education Materials: Preventing Pneumonia, Understanding Coccidioidomycosis Print Language: Croatian Stand Alone Forms: [facility] Award Info., Patient Portal Info Letter Discharge Order Discharge Orders: Discharge (Routine); Ordered 02/13/25 Ordered By: Jaquan Bob Quality Discharge Quality Measures VTE prophylaxis MD Attestestation MD Attestation I attest that I was physically present for the evaluation, physical examination, lab and imaging review of the patient with the residents. I discussed the case with the residents and agree with the findings and plans of care as documented above. Juanpablo Ivy MD
== END 2025-02-13 13:00 | disposition skilled nursing facility (03) | DRG 194 ==
LOC: SERX 20:24 → SERHOLD 22:00 → S2NX 02-11 01:02
PROVIDERS: Physician Assistant; Student in an Organized Health Care Education/Training Program; Admitting Provider Internal Medicine; Emergency Provider Emergency Medicine; PCP Hospitalist; Visit Provider Student in an Organized Health Care Education/Training Program
DX: J18.9 Pneumonia, unspecified organism (principal); B38.0 Acute pulmonary coccidioidomycosis; G93.40 Encephalopathy, unspecified; E11.9 Type 2 diabetes mellitus without complications; L89.152 Pressure ulcer of sacral region, stage 2; K21.9 Gastro-esophageal reflux disease without esophagitis; I10 Essential (primary) hypertension; R09.02 Hypoxemia; R62.50 Unspecified lack of expected normal physiological development in childhood; G40.909 Epilepsy, unspecified, not intractable, without status epilepticus; E78.5 Hyperlipidemia, unspecified; F31.9 Bipolar disorder, unspecified; G71.00 Muscular dystrophy, unspecified; Z66 Do not resuscitate; Z79.4 Long term (current) use of insulin; Z79.899 Other long term (current) drug therapy; Z96.659 Presence of unspecified artificial knee joint
CPT/HCPCS: 36415; 71045; 80048; 80053; 81001; 83036; 83605; 84145; 84484; 85025; 85610; 85730; 86635; 87040; 87081; 87086; 87400; 87449; 87811; 89220; 92610; 93005; 93306; 94664; 96360; 99285; J0456; J0696; J1450; J1650; J1815; J7030; J7050; 94640; A9270